=== PATIENT | male | born 1965 | race Caucasian/White ===

== ENCOUNTER 2021-07-03 09:24 | Day surgery (SDC) | payer BC ==
--- NOTE | 2021-07-03 08:43 | HP ---
DATE OF SURGERY: 07/03/2021 HISTORY OF PRESENT ILLNESS: The patient is a 56 year-old with last colonoscopy six or seven years ago with question of some polyps back then. No bloody stools. No change in bowel habits. No pain. Family history of grandfather with colon cancer. The patient is in need of follow up screening colonoscopy. PAST MEDICAL HISTORY: Heart disease. Diabetes. Hypertension. PAST SURGICAL HISTORY: Colonoscopy. Tonsillectomy/adenoidectomy. Heart stent. MEDICATIONS: Metformin, glipizide, hydrochlorothiazide, lisinopril, amlodipine, Bystolic, rosuvastatin, aspirin, Latanoprost. ALLERGIES: NKDA. FAMILY HISTORY: Negative in regards to this problem. SOCIAL HISTORY: No alcohol abuse. REVIEW OF SYSTEMS: Fourteen systems reviewed. No chest pain or palpitations. Other systems negative or noncontributory as above and per preadmission questionnaire. PHYSICAL EXAMINATION: GENERAL: No acute distress. HEENT: Sclerae nonicteric. NECK: No JVD. CHEST: Equal excursion, nonlabored breathing. CVS: Regular rate and rhythm. ABDOMEN: Soft. No peritoneal signs. EXTREMITIES: No significant edema. NEURO: Alert, oriented, moving extremities symmetrically. RECTAL: Deferred timed to endoscopy exam. PSYCH: Appropriate mood and affect. IMPRESSION: Family history of colon cancer. The patient has question of polyps in the past. He is in need of follow up screening colonoscopy. I feel he is a candidate. Risks and benefits explained in detail including but not limited to bleeding or infection, risk of bowel injury or perforation possibly requiring open procedure, risk of missed or nondiagnosis or incomplete exam possibly requiring barium enema, other studies or procedures, general risk of anesthesia or sedation, risk of bowel prep, but not limited to and consent was obtained. Will proceed with outpatient colonoscopy under MAC anesthesia.
[2021-07-03] MEDS ORDERED: Lactated Ringers 1,000 ML IV SCH (10:00)
[2021-07-03] MEDS ORDERED: DIPRIVAN 200 MG/20 ML IV ONE ×2 (12:09→12:32)
[2021-07-03] MEDS ORDERED: Versed 2 MG/2 ML Injection ONE (12:10)
[2021-07-03 13:49] VITALS: O2SAT 95
[2021-07-03 13:51] VITALS: BP 148/92; PULSE 67
--- NOTE | 2021-07-04 07:49 | OP ---
SURGERY DATE/TIME: 07/03/2021 1210 PREOPERATIVE DIAGNOSIS: Family history of colon cancer, question history of polyps in the past, need for follow up screening colonoscopy. POSTOPERATIVE DIAGNOSES: 1) Multiple small polyps. 2) Mild pancolonic diverticulosis. 3) ASA Class III. PROCEDURES: 1) Colonoscopy to cecum. 2) Hot snare polypectomy. 3) Small rectal polyp versus hyperplastic lesion. 4) Hot biopsy removal of small early polyps versus hyperplastic lesion in the cecum, descending colon, sigmoid colon, rectosigmoid colon and rectum. SURGEON: Dr. Tone Amaro. ANESTHESIA: MAC. ESTIMATED BLOOD LOSS: Minimal. INDICATIONS: As noted above. Risks and benefits explained in detail but not limited to and consent obtained. DESCRIPTION OF PROCEDURE AND FINDINGS: The patient is taken to the operating room. MAC anesthesia introduced. After official time out and no disagreement with planned procedure, digital rectal exam did not reveal any rectal masses. Video colonoscope inserted and passed up the tortuous sigmoid, descending, transverse and ascending colon. With external pressure the scope was able to be passed around to the ileocecal valve and was able to be passed around to the cecum. Appendiceal orifice and valve were photo documented. The prep overall was fair with some liquidy semisolid stool that required suction irrigating out adding additional time to the case. The scope is slowly and carefully withdrawn over the next 11 minutes. Small early polyp versus raised lesion versus early hyperplastic lesion in the cecum was removed with hot biopsy forceps with brief bursts of cautery. Good hemostasis noted. Additional small, early polyp versus hyperplastic lesion descending colon removed with hot biopsy forceps with brief bursts of cautery. Good hemostasis was noted. Three in the sigmoid colon removed with hot biopsy forceps with brief bursts of cautery. Good hemostasis noted. Additional couple in the rectosigmoid as well as two or three small, early polyps versus hyperplastic lesion in the rectosigmoid and rectum removed with hot biopsy forceps. There was one smaller polyp that was probably 3.5 mm in size removed with hot snare polypectomy in the rectum. Good hemostasis noted. He had some mild diverticulosis. No signs of any other large polyps, masses or obstructing lesions. There was no family here to discuss the findings with. I will see him back in the office in a couple of weeks for results.
== END 2021-07-03 13:53 | disposition home or self-care (01) ==
LOC: SDC 09:24
PROVIDERS: ATTEND Surgery
DX: Z12.11 Encounter for screening for malignant neoplasm of colon (principal); Z80.0 Family history of malignant neoplasm of digestive organs; E11.9 Type 2 diabetes mellitus without complications; Z79.899 Other long term (current) drug therapy; D12.8 Benign neoplasm of rectum; K57.30 Diverticulosis of large intestine without perforation or abscess without bleeding
CPT/HCPCS: 82947; 88305; J2250; J2704

== ENCOUNTER 2024-06-21 07:19 | Observation (INO) | payer BC ==
--- NOTE | 2024-06-21 07:45 | ERPHSYRPT ---
- History of Present Illness Time Seen by Provider: 06/21/24 07:31 Source: patient, family Exam Limitations: no limitations Physician History: pt is 59 yr old male with brief episode of tingling /numbness yesterday and awakened this am with recurrence left side of body and head which has persisted since. Ho headache or trauma. No blood thinner except baby ASA daily. Prior stents for CAD. Diabetes treated by Hx. No CP or SObreath today. He was told of a prior TIA when the eye Dr. mcgill a field deficit looking for glaucoma - he believes mostly negative w/u then without suggested interventions but diagnosed with a TIA ( no symptoms). Discussed risks/benefits of testing/Tx with pt and family including CT head, CTA ( if neuro indicated) Teleneuro consult, CBC, CMP, UA, EKG, Trops BNP, Lactate, ESR, Mag, IVF, and they wish to proceed so these are ordered. Results discussed with pt and family. Family is in ER as independent source to confirm Hx. No Pronator drift, No facial weakness, Minimal visual field loss without change on right per pt. fundi benign, PERRL EOM full. Reflexes normal and symmetrical, Normal gait and coordination - but subjective dysequilibrium and left sided tingling /numbness but sensation intact. Timing/Duration: today Severity: moderate Character of Deficits: altered sensation (subjectgive) Deficits: no difficulties Baseline/Normal Cognition: alert oriented x 3 Current Cognition: alert oriented x 3 Baseline Gait: walks w/o assistance Associated Symptoms: numbness/tingling in legs/feet, paresthesia Allergies/Adverse Reactions: No Known Drug Allergies Allergy (Verified 06/21/24 07:24) Home Medications: Metformin HCl [Glucophage] 2,500 mg PO DAILY 10/24/15 [History] Rosuvastatin Calcium [Crestor] 10 mg PO DAILY 10/24/15 [History] lisinopriL [Zestril] 2.5 mg PO DAILY 10/24/15 [History] Amlodipine Besylate 5 mg [Norvasc 5 mg] 10 mg PO DAILY 06/27/21 [History] Glipizide 5 mg [Glucotrol 5 MG] 10 mg PO BID 06/27/21 [History] Hydrochlorothiazide 25 mg [hydroDIURIL 25 MG] 25 mg PO DAILY 06/27/21 [History] Latanoprost/Pf [Latanoprost 0.005% Eye Drop] 1 drop OP DAILY 07/03/21 [History] Nebivolol HCl [Bystolic] 20 mg PO DAILY 07/03/21 [History] Dulaglutide [Trulicity] 0.75 mg SQ WEEKLY 06/21/24 [History] cycloSPORINE [Cyclosporine] 1 drop OP BID 06/21/24 [History] - Review of Systems Constitutional: No Fever, No Chills Eyes: No Symptoms Ears, Nose, & Throat: No Symptoms Respiratory: No Cough, No Dyspnea Cardiac: No Chest Pain, No Edema, No Syncope Abdominal/Gastrointestinal: No Abdominal Pain, No Nausea, No Vomiting, No Diarrhea Genitourinary Symptoms: No Dysuria Musculoskeletal: No Back Pain, No Neck Pain Skin: No Symptoms, No Rash Neurological: Parasthesia, No Dizziness, No Focal Weakness, No Sensory Changes Psychological: No Symptoms Endocrine: No Symptoms Hematologic/Lymphatic: No Symptoms Immunological/Allergic: No Symptoms All Other Systems: Reviewed and Negative - Past Medical History Pertinent Past Medical History: Yes Neurological History: No Pertinent History ENT History: No Pertinent History Cardiac History: Coronary Artery Disease, High Cholesterol, Hypertension Respiratory History: No Pertinent History Endocrine Medical History: Diabetes Type II Musculoskeletal History: No Pertinent History GI Medical History: No Pertinent History History: No Pertinent History Psycho-Social History: No Pertinent History Male Reproductive Disorders: No Pertinent History - Past Surgical History Past Surgical History: Yes Neuro Surgical History: No Pertinent History Cardiac: Angioplasty, Cardiac Catheterization, Cardiac Stent Respiratory: No Pertinent History Gastrointestinal: No Pertinent History Genitourinary: No Pertinent History Musculoskeletal: No Pertinent History Male Surgical History: No Pertinent History Other Surgical History: T&A Significant Family History: heart disease, diabetes, hypertension - Social History Smoking Status: Former smoker Exposure to second hand smoke: No Drug Use: none - Nursing Vital Signs Nursing Vital Signs: Initial Vital Signs Pulse Rate 88 06/21/24 07:30 Respiratory Rate 14 06/21/24 07:30 Blood Pressure 152/79 06/21/24 07:30 O2 Sat by Pulse Oximetry 97 06/21/24 07:30 Pain Scale Pain Intensity 3 - Agatha Coma Scale Best Eye Response ([place]): (4) open spontaneously Best Verbal Response ([place]): (5) oriented Best Motor Response ([place]): (6) obeys commands [place] Total: 15 - Physical Exam General Appearance: no apparent distress, alert Eye Exam: bilateral eye: normal inspection, PERRL, EOMI Ears, Nose, Throat Exam: normal ENT inspection, pharynx normal, moist mucous membranes, tonsillar exudate Neck Exam: normal inspection, non-tender, supple, No meningismus, No Brudzinski, No Kernig's, No carotid bruit, No JVD, No lymphadenopathy, No midline tenderness Respiratory: normal breath sounds, lungs clear, airway intact, No chest tenderness, No respiratory distress, No crackles/rales, No rhonchi, No wheezing Cardiovascular: regular rate/rhythm, normal heart sounds, normal peripheral pulses, No edema Gastrointestinal: soft, No tenderness, No distention Rectal Exam: deferred Back Exam: normal inspection Extremity Exam: normal inspection, No pedal edema Peripheral Pulses: carotid (R): 2+, carotid (L): 2+, femoral (R): 2+, femoral (L): 2+, dorsalis-pedis (R): 2+, dorsalis-pedis (L): 2+ Mental Status: alert, oriented x 3 source inspector Exam: normal hearing, normal speech, PERRL, tongue midline Coordination/Gait: normal finger to nose, normal gait Motor/Sensory: no motor deficit, no sensory deficit, no pronator drift, negative Babinski's sign DTR: bicep (R): 2+, bicep (L): 2+, tricep (R): 2+, tricep (L): 2+, knee (R): 2+, knee (L): 2+, ankle (R): 2+, ankle (L): 2+ Skin Exam: normal color, warm, dry, No rash SpO2 Interpretation: normal SpO2: 99 O2 Delivery: Room Air - Course Nursing assessment & vital signs reviewed: Yes EKG Interpreted by Me: Sinus Rhythm, NORMAL AXIS, NORMAL INTERVALS, NORMAL QRS, NORMAL ST-T - CT Exams Head CT Interpretation: Tele-radiologist Report, Other (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 and ischemic changes compared to prior MRI.) Ordered Tests: Active Orders 24 hr Category Date Time Status Mannequin Decorator STAT Care 06/21/24 07:47 Active EKG-ER Only STAT Care 06/21/24 07:46 Active IV Insertion STAT Care 06/21/24 07:46 Active NPO (ED) STAT Care 06/21/24 07:46 Active Pulse Oximetry (ED) STAT Care 06/21/24 07:48 Active Tele-Health Consult ROUTINE Cons 06/21/24 07:[address] ANGIOGRAPHY NECK [CT] Stat Exams 06/21/24 09:58 Taken CTA HEAD W AND/OR WO CONTRAST [CT] Stat Exams 06/21/24 09:58 Taken HEAD WITHOUT CONTRAST [CT] Stat Exams 06/21/24 07:57 Completed CBC W DIFF Stat Lab 06/21/24 07:50 Completed CMP Stat Lab 06/21/24 07:50 Completed Erythrocyte Sedimentation Rate Stat Lab 06/21/24 07:50 Completed Lactic Acid Stat Lab 06/21/24 07:50 Completed MG [MAGNESIUM] Stat Lab 06/21/24 08:16 Completed NT PRO BNPII Stat Lab 06/21/24 07:50 Completed TROPONIN Q4H Lab 06/21/24 07:50 Completed TROPONIN Q4H Lab 06/21/24 12:00 Ordered TROPONIN Q4H Lab 06/21/24 16:00 Ordered TSH [TSH, 3RD Generation] Stat Lab 06/21/24 08:16 Completed UA W/RFX UR CULTURE Stat Lab 06/21/24 08:16 Completed Medication Summary Generic Name Dose Route Start Last Admin Trade Name Freq PRN Reason Stop Dose Admin Sodium Chloride 1,000 mls @ 100 mls/hr 06/21/24 08:00 06/21/24 07:55 Sodium Chloride 0.9% 1000 Ml IV 07/21/24 07:59 100 mls/hr .Q10H CEE Administration Discontinued Medications Generic Name Dose Route Start Last Admin Trade Name Freq PRN Reason Stop Dose Admin Aspirin 325 mg 06/21/24 09:09 06/21/24 09:20 Aspirin 325 Mg Tablet.Ec PO 06/21/24 09:10 325 mg STAT ONE Administration Lab/Rad Data: Laboratory Result Diagrams 06/21/24 07:50 06/21/24 07:50 Laboratory Results 06/21/24 06/21/24 06/21/24 Range/Units 08:16 08:16 08:16 WBC (4.23-9.07) x10^3/uL RBC (4.63-6.08) x10^6/uL Hgb (13.7-17.5) g/dL Hct (40.1-51.0) % MCV (79.0-92.2) fL MCH (25.7-32.2) pg MCHC (32.3-36.5) g/dL RDW (11.6-14.4) % Plt Count (163-337) x10^3/uL MPV (9.4-12.4) fL Gran % (34.0-67.9) % Immature Gran % (Auto) (0.001-0.429) % Nucleat RBC Rel Count (0.00-0.2) % Eos # (Auto) (0.04-0.54) x10^3/uL Immature Gran # (Auto) (0.001-0.031) x10^3u/L Absolute Lymphs (auto) (1.32-3.57) x10^3/uL Absolute Monos (auto) (0.30-0.82) x10^3/uL Absolute Nucleated RBC (0.00-0.012) x10^3u/L Lymphocytes % (21.8-53.1) % Monocytes % (5.3-12.2) % Eosinophils % (0.8-7.0) % Basophils % (0.2-1.2) % Absolute Granulocytes (1.78-5.38) x10^3/uL Basophils # (0.01-0.08) x10^3/uL ESR (0-15) mm/hr Sodium (135-145) mmol/L Potassium (3.5-5.1) mmol/L Chloride (98-107) mmol/L Carbon Dioxide (22-30) mmol/L Anion Gap (5-15) MEQ/L BUN (9-20) mg/dL Creatinine (0.66-1.25) mg/dL Estimated GFR ML/MIN Glucose (74-106) mg/dL Lactic Acid (0.4-2.0) Calcium (8.4-10.2) mg/dL Magnesium 1.9 (1.6-2.3) mg/dL Total Bilirubin (0.2-1.3) mg/dL AST (17-59) U/L ALT (0-50) U/L Alkaline Phosphatase (38-126) U/L Troponin I (0.000-0.033) ng/mL NT-Pro-B Natriuret Pep (<300) pg/mL Serum Total Protein (6.3-8.2) g/dL Albumin (3.5-5.0) g/dL TSH 3rd Generation 1.334 (0.470-4.680) mIU/L Urine Color Yellow (Yellow) Urine Appearance Clear (Clear) Urine pH 7.5 (4.6-8.0) Ur Specific Hope 1.020 (1.005-1.030) Urine Protein Negative (Negative) Urine Glucose (UA) >=1000 A (Negative) mg/dL Urine Ketones Negative (Negative) Urine Blood Negative (Negative) Urine Nitrite Negative (Negative) Urine Bilirubin Negative (Negative) Urine Urobilinogen 0.2 (0.2) mg/dL Ur Leukocyte Esterase Negative (Negative) U Hyaline Cast (Auto) NONE SEEN (0-2) /LPF Urine Microscopic RBC 0-2 (0-5) /HPF Urine Microscopic WBC 0-2 (0-5) /HPF Ur Epithelial Cells None Seen (None Seen) /HPF Urine Bacteria None Seen (None Seen) /HPF Urine Culture Reflexed NO (NO) 06/21/24 06/21/24 06/21/24 Range/Units 07:50 07:50 07:50 WBC (4.23-9.07) x10^3/uL RBC (4.63-6.08) x10^6/uL Hgb (13.7-17.5) g/dL Hct (40.1-51.0) % MCV (79.0-92.2) fL MCH (25.7-32.2) pg MCHC (32.3-36.5) g/dL RDW (11.6-14.4) % Plt Count (163-337) x10^3/uL MPV (9.4-12.4) fL Gran % (34.0-67.9) % Immature Gran % (Auto) (0.001-0.429) % Nucleat RBC Rel Count (0.00-0.2) % Eos # (Auto) (0.04-0.54) x10^3/uL Immature Gran # (Auto) (0.001-0.031) x10^3u/L Absolute Lymphs (auto) (1.32-3.57) x10^3/uL Absolute Monos (auto) (0.30-0.82) x10^3/uL Absolute Nucleated RBC (0.00-0.012) x10^3u/L Lymphocytes % (21.8-53.1) % Monocytes % (5.3-12.2) % Eosinophils % (0.8-7.0) % Basophils % (0.2-1.2) % Absolute Granulocytes (1.78-5.38) x10^3/uL Basophils # (0.01-0.08) x10^3/uL ESR 4 (0-15) mm/hr Sodium 131 L (135-145) mmol/L Potassium 4.1 (3.5-5.1) mmol/L Chloride 97 L (98-107) mmol/L Carbon Dioxide 25 (22-30) mmol/L Anion Gap 13.9 (5-15) MEQ/L BUN 13 (9-20) mg/dL Creatinine 0.80 (0.66-1.25) mg/dL Estimated GFR 101.3 ML/MIN Glucose 236 H (74-106) mg/dL Lactic Acid (0.4-2.0) Calcium 9.7 (8.4-10.2) mg/dL Magnesium (1.6-2.3) mg/dL Total Bilirubin 0.80 (0.2-1.3) mg/dL AST 28 (17-59) U/L ALT 33 (0-50) U/L Alkaline Phosphatase 64 (38-126) U/L Troponin I < 0.012 (0.000-0.033) ng/mL NT-Pro-B Natriuret Pep 31.6 (<300) pg/mL Serum Total Protein 7.2 (6.3-8.2) g/dL Albumin 4.6 (3.5-5.0) g/dL TSH 3rd Generation (0.470-4.680) mIU/L Urine Color (Yellow) Urine Appearance (Clear) Urine pH (4.6-8.0) Ur Specific [place] (1.005-1.030) Urine Protein (Negative) Urine Glucose (UA) (Negative) mg/dL Urine Ketones (Negative) Urine Blood (Negative) Urine Nitrite (Negative) Urine Bilirubin (Negative) Urine Urobilinogen (0.2) mg/dL Ur Leukocyte Esterase (Negative) U Hyaline Cast (Auto) (0-2) /LPF Urine Microscopic RBC (0-5) /HPF Urine Microscopic WBC (0-5) /HPF Ur Epithelial Cells (None Seen) /HPF Urine Bacteria (None Seen) /HPF Urine Culture Reflexed (NO) 06/21/24 06/21/24 Range/Units 07:50 07:50 WBC 10.5 H (4.23-9.07) x10^3/uL RBC 5.49 (4.63-6.08) x10^6/uL Hgb 16.5 (13.7-17.5) g/dL Hct 47.2 (40.1-51.0) % MCV 86.0 (79.0-92.2) fL MCH 30.1 (25.7-32.2) pg MCHC 35.0 (32.3-36.5) g/dL RDW 13.2 (11.6-14.4) % Plt Count 296 (163-337) x10^3/uL MPV 9.5 (9.4-12.4) fL Gran % 76.9 H (34.0-67.9) % Immature Gran % (Auto) 0.4 (0.001-0.429) % Nucleat RBC Rel Count 0.0 (0.00-0.2) % Eos # (Auto) 0.08 (0.04-0.54) x10^3/uL Immature Gran # (Auto) 0.04 H (0.001-0.031) x10^3u/L Absolute Lymphs (auto) 1.66 (1.32-3.57) x10^3/uL Absolute Monos (auto) 0.59 (0.30-0.82) x10^3/uL Absolute Nucleated RBC 0.00 (0.00-0.012) x10^3u/L Lymphocytes % 15.7 L (21.8-53.1) % Monocytes % 5.6 (5.3-12.2) % Eosinophils % 0.8 (0.8-7.0) % Basophils % 0.6 (0.2-1.2) % Absolute Granulocytes 8.11 H (1.78-5.38) x10^3/uL Basophils # 0.06 (0.01-0.08) x10^3/uL ESR (0-15) mm/hr Sodium (135-145) mmol/L Potassium (3.5-5.1) mmol/L Chloride (98-107) mmol/L Carbon Dioxide (22-30) mmol/L Anion Gap (5-15) MEQ/L BUN (9-20) mg/dL Creatinine (0.66-1.25) mg/dL Estimated GFR ML/MIN Glucose (74-106) mg/dL Lactic Acid 1.8 (0.4-2.0) Calcium (8.4-10.2) mg/dL Magnesium (1.6-2.3) mg/dL Total Bilirubin (0.2-1.3) mg/dL AST (17-59) U/L ALT (0-50) U/L Alkaline Phosphatase (38-126) U/L Troponin I (0.000-0.033) ng/mL NT-Pro-B Natriuret Pep (<300) pg/mL Serum Total Protein (6.3-8.2) g/dL Albumin (3.5-5.0) g/dL TSH 3rd Generation (0.470-4.680) mIU/L Urine Color (Yellow) Urine Appearance (Clear) Urine pH (4.6-8.0) Ur Specific [place] (1.005-1.030) Urine Protein (Negative) Urine Glucose (UA) (Negative) mg/dL Urine Ketones (Negative) Urine Blood (Negative) Urine Nitrite (Negative) Urine Bilirubin (Negative) Urine Urobilinogen (0.2) mg/dL Ur Leukocyte Esterase (Negative) U Hyaline Cast (Auto) (0-2) /LPF Urine Microscopic RBC (0-5) /HPF Urine Microscopic WBC (0-5) /HPF Ur Epithelial Cells (None Seen) /HPF Urine Bacteria (None Seen) /HPF Urine Culture Reflexed (NO) - Progress Progress: improved, re-examined Progress Note: 06/21/24 09:07 Consulted with tele- Neurologist who advised admit and CTA head and neck ASA full dose and increase crestor to 40 mg. I will now consult with Hospitalist to consider admission. 06/21/24 10:13 Discussed in consultation with Hospitalist Dr. Marquez and all agree best to admit pt and he and his team will take over care at this point. He is aWAre of the pending CTA imaging studies. 06/21/24 10:[address] Other (Dr. Matt Marquez) Will see patient in: hospital (observation) Counseled pt/family regarding: lab results, diagnosis, need for follow-up, rad results Medical Desision Making - Independent Historian Additional History obtained from: Family - Discussion of managment Care discussed with:: specialist Reviewed:: Test results, Need for additional workup Agreed on:: Treatment plan, need for follow-up, decision to admit, place in obs - Diagnostic Testing Diagnostic test were ordered, analyzed, and reviewed by me: Yes Radiological Interpretation: Teleradiologist Report - Risk of complications The pt has a mod risk of morbidity or mortality based on: Need for prescription drug management The pt has a high risk of morbidity or mortality based on: Decision regarding hospitilization or escalation of hosp level of care - Departure Departure Disposition: Observation Clinical Impression: TIA symptoms with cerebrovascular diseas Condition: Good Critical Care Time: No Referrals: JOSE NEGRON [Primary Care Provider] - Follow up/PCP as directed
[2024-06-21] MEDS ORDERED: Sodium Chloride 0.9% 1000 ML 1,000 ML ONE (07:52)
[2024-06-21 07:53] LABS: Absolute Neutrophil Ct (ANC) 8.11 x10^3/uL (1.78-5.38); BASOPHIL % 0.6 % (0.2-1.2); Basophil (Absolute #) 0.06 x10^3/uL (0.01-0.08); Eosinophil % 0.8 % (0.8-7.0); Eosinophil (Absolute #) 0.08 x10^3/uL (0.04-0.54); Hematocrit 47.2 % (40.1-51.0); Hemoglobin 16.5 g/dL (13.7-17.5); IMMATURE GRAN # 0.04 x10^3u/L (0.001-0.031); IMMATURE GRAN % 0.4 % (0.001-0.429); Lymphocyte (Absolute #) 1.66 x10^3/uL (1.32-3.57); Lymphocytes % 15.7 % (21.8-53.1); Mean Corpuscular Hemoglobin 30.1 pg (25.7-32.2); Mean Platelet Volume 9.5 fL (9.4-12.4); Monocyte (Absolute #) 0.59 x10^3/uL (0.30-0.82); Monocytes % 5.6 % (5.3-12.2); Neutrophil % 76.9 % (34.0-67.9); Platelet Count 296 x10^3/uL (163-337); Red Blood Count 5.49 x10^6/uL (4.63-6.08); Red Cell Distribution Width 13.2 % (11.6-14.4); White Blood Count 10.5 x10^3/uL (4.23-9.07)
[2024-06-21] MEDS: Sodium Chloride 0.9% 1000 ML 1,000 ML IV SCH ×2 (07:55→16:35)
[2024-06-21 08:16] LABS: ALBUMIN 4.6 g/dL (3.5-5.0); ANION GAP 13.9 MEQ/L (5-15); BILIRUBIN,TOTAL 0.8 mg/dL (0.2-1.3); Calcium 9.7 mg/dL (8.4-10.2); Creatinine 1 0.8 mg/dL (0.66-1.25); EST GLOMERULAR FILTRATION RATE 101.3 ML/MIN; NT PRO BNPII 31.6 pg/mL (<300); Potassium 4.1 mmol/L (3.5-5.1); Total Protein 7.2 g/dL (6.3-8.2)
[2024-06-21 08:29] LABS: Appearance Clear (Clear); Bacteria None Seen /HPF (None Seen); Bilirubin Negative (Negative); Blood Negative (Negative); Epithelial Cells None Seen /HPF (None Seen); Glucose, Urine >=1000 mg/dL (Negative); Hyaline Casts NONE SEEN /LPF (0-2); Ketones Negative (Negative); Leukocyte Esterase Negative (Negative); Nitrite Negative (Negative); Ph 7.5 (4.6-8.0); Protein,Urine Dip Negative (Negative); RBC 0-2 /HPF (0-5); Urobilinogen 0.2 mg/dL (0.2); WBC 0-2 /HPF (0-5)
[2024-06-21 08:34] LABS: ADD URINE CULTURE? NO (NO)
--- NOTE | 2024-06-21 08:39 | PCM.CONS ---
History of Present Illness - Neuro Consultation ED Arrival Date & Time: 06/21/24 07:19 Providers: Attending Provider: ED Provider: DORCAS ESTEBAN Consulting Provider: ABBY JOINER MD cc:: The requesting physician will be sent a copy of the consult. - History of Present Illness HPI: Teleneurology Attestation & Consent: As the provider for this telehealth consult requested by the patients primary attending physician, I attest that I introduced myself to the patient, provided my credentials, disclosed my location, and determined that, based on a review of the patients chart and disc ussion with the patients primary team, telemedicine via a real-time, two-way, interactive audio and video platform is an appropriate and effective means of providing this service. The patient and I mutually agree that this visit is appropriate for telemedicine. The patient has consented to this telemedicine visit. Last known normal: 1500h IRON CASTER 06/20/24 Time of stroke alert: 0721h IRON CASTER 06/21/24 Time stroke alert page returned: 07h IRON CASTER 06/21/24 Was the patient seen on camera?: yes The patient is a 59M with h/o CAD, TIA,DM presents with left hand numbness that started yesterday. c/o LUE ,LLE and RLE numbness, heaviness that happened yesterday around 1500h IRON CASTER but went away and recurred this morning and so he came to the ER today. He says he is feeling a little better now but can still tell something is not quite right. He says his head feels warm when he touches it and feels pressure in his head but denies headache. He denies slurred speech, syncope, falls, etoh abuse, illicit drug use. Former smoker, quit about 15 yrs ago. He takes asa 81mg and rosuvastatin 10mg daily Review of Systems - Review of Systems Review of Systems (Narrative): Pertinent positive and negative findings as per HPI. All other systems negative. Constitutional: Denies fevers, chills, weight loss ENT: Denies tinnitus Ophthalmology: Denies diplopia, blurred vision, vision loss Respiratory: Denies SOB, cough Cardiovascular: Denies chest pains, palpitations GI: Denies nausea, vomiting : Denies hematuria Hematology: Denies excessive bleeding Musculoskeletal: Denies back pain, neck pain, joint pain Neurology: Denies headache, altered mentation Mental Health: Denies anxiety Dermatology: Denies rash - Past Medical History Past Medical History: Yes Neurological History: No Pertinent History ENT History: No Pertinent History Cardiac History: Coronary Artery Disease, High Cholesterol, Hypertension Respiratory History: No Pertinent History Endocrine Medical History: Diabetes Type II Musculoskelatal History: No Pertinent History GI Medical History: No Pertinent History History: No Pertinent History Pyscho-Social History: No Pertinent History Male Reproductive Disorders: No Pertinent History - Past Surgical History Past Surgical History: Yes Neuro Surgical History: No Pertinent History Cardiac History: Angioplasty, Cardiac Catheterization, Cardiac Stent Respiratory Surgery: No Pertinent History GI Surgical History: No Pertinent History Genitourinary Surgical Hx: No Pertinent History Musculskeletal Surgical Hx: No Pertinent History Male Surgical History: No Pertinent History Other Surgical History: T&A Significant Family History: heart disease, diabetes, hypertension - Social History Smoking Status: Former smoker Exposure to second hand smoke: No Alcohol: None Drug Use: none - Social Determinants of Health Will the patient participate in the screening: Yes Do you worry about a steady place to live?: No Do you have any problems with any of the following?: No known problems In the past 12 months,have you had to go without utilities?: No Have you or anyone in your house had to go without enough: No Transportation Issues: No Has anyone in your support network made you feel unsafe?: No Physical Exam - Vital Signs Vital Signs: Vital Signs - 24 hr 06/21/24 06/21/24 06/21/24 07:30 07:32 08:07 Temperature 98.2 F Pulse Rate 88 89 Respiratory 14 16 Rate Blood Pressure 152/79 Blood Pressure 169/79 [Right Arm] O2 Sat by Pulse 97 99 99 Oximetry 06/21/24 08:16 Temperature Pulse Rate Respiratory Rate Blood Pressure Blood Pressure [Right Arm] O2 Sat by Pulse 98 Oximetry - Physical Exam Tele-Neuro Physical Exam (Narrative): Gen: Well developed, well nourished. No acute distress. MS: Awake and oriented. Alert. Fund of knowledge, memory, and language at baseline. CV: Regular rate. No edema. ldr rn: PA, EOMI. +blink. Unable to visualize fundi. Sensation intact. Face is symmetric. Hearing intact. Trapezii strong. Tongue midline. Motor: Antigravity in all 4 extremities. Normal tone and bulk. Sens: Intact to light touch in all 4 extremities. MSR: Unable to assess through telemedicine, no clonus noted. Mvmt: No tremors noted. WAYLON/FTN intact. Gait: Deferred. NIHSS Mental status (0-3): 0 Month/age (0-2): 0 Commands (0-2): 0 Best Gaze (0-2): 0 Visual [place] (0-3):0 Facial weakness (0-3): 0 LUE (0-4): 0 RUE (0-4): 0 LLE (0-4): 0 RLE (0-4): 0 Ataxia (0-2): 0 Sensation (0-2): 0 Aphasia (0-3): 0 Dysarthria (0-2): 0 Extinction (0-2): 0 NIHSS Total: 0 - NIHSS Stroke Scale Date Completed: 06/21/24 Time Stroke Scale Completed: 07:36 Results - Labs Lab/Micro Results: Lab Results-Last 24 Hours 06/21/24 06/21/24 06/21/24 Range/Units 07:50 07:50 07:50 WBC 10.5 H (4.23-9.07) x10^3/uL RBC 5.49 (4.63-6.08) x10^6/uL Hgb 16.5 (13.7-17.5) g/dL Hct 47.2 (40.1-51.0) % MCV 86.0 (79.0-92.2) fL MCH 30.1 (25.7-32.2) pg MCHC 35.0 (32.3-36.5) g/dL RDW 13.2 (11.6-14.4) % Plt Count 296 (163-337) x10^3/uL MPV 9.5 (9.4-12.4) fL Gran % 76.9 H (34.0-67.9) % Immature Gran % (Auto) 0.4 (0.001-0.429) % Nucleat RBC Rel Count 0.0 (0.00-0.2) % Eos # (Auto) 0.08 (0.04-0.54) x10^3/uL Immature Gran # (Auto) 0.04 H (0.001-0.031) x10^3u/L Absolute Lymphs (auto) 1.66 (1.32-3.57) x10^3/uL Absolute Monos (auto) 0.59 (0.30-0.82) x10^3/uL Absolute Nucleated RBC 0.00 (0.00-0.012) x10^3u/L Lymphocytes % 15.7 L (21.8-53.1) % Monocytes % 5.6 (5.3-12.2) % Eosinophils % 0.8 (0.8-7.0) % Basophils % 0.6 (0.2-1.2) % Absolute Granulocytes 8.11 H (1.78-5.38) x10^3/uL Basophils # 0.06 (0.01-0.08) x10^3/uL Sodium 131 L (135-145) mmol/L Potassium 4.1 (3.5-5.1) mmol/L Chloride 97 L (98-107) mmol/L Carbon Dioxide 25 (22-30) mmol/L Anion Gap 13.9 (5-15) MEQ/L BUN 13 (9-20) mg/dL Creatinine 0.80 (0.66-1.25) mg/dL Estimated GFR 101.3 ML/MIN Glucose 236 H (74-106) mg/dL Calcium 9.7 (8.4-10.2) mg/dL Total Bilirubin 0.80 (0.2-1.3) mg/dL AST 28 (17-59) U/L ALT 33 (0-50) U/L Alkaline Phosphatase 64 (38-126) U/L Troponin I < 0.012 (0.000-0.033) ng/mL NT-Pro-B Natriuret Pep 31.6 (<300) pg/mL Serum Total Protein 7.2 (6.3-8.2) g/dL Albumin 4.6 (3.5-5.0) g/dL - Radiology Orders Radiology Orders: Radiology Procedures Category Date Time Status HEAD WITHOUT CONTRAST [CT] Stat Exams 06/21/24 07:57 Taken Impressions & Recommendations - ED Arrival Time ED Arrival Date & Time: ED Arrival Date and Time 06/21/24 07:19 Last known well time: - NIHSS IV Thrombolysis Standard of Care: IV thrombolysis as a standard of care in acute stroke discussed with DORCAS ESTEBAN. Risk, benefits, and options of IV thrombolytic therapy for acute ischemic stroke were discussed with the patient/family THOMAS LARSON. We discussed that use of IV tenecteplase is in line with national stroke guidelines. We discussed that risks of IV thrombolytic use include intracranial hemorrhage, other fatal bleeding risks, and angioedema. Alternatives of treatment, including not proceeding with thrombolytic therapy were discussed. - Recommendations Recommendations: Stroke acute management:out of window for TNK - Admit to stroke unit - Frequent neuro-checks (q4h) - Permissive HTN for 24h:systolic BP goal up to 220, diastolic up to 110 mmHg for 24h - Baseline EKG and CXR - Basic labs: CBC, CMP, coagulation panel and troponin - Intravenous hydration with normal saline at 75cc per hour - NPO until after SEISMOMETER OPERATOR eval -Replace electrolytes prn-Keep K >4.0, Mg > 2.0. - Head of bed > 30 degrees for aspiration prevention and aspiration precautions Stroke workup: -CTH:no acute intracranial process. left occipital and left BG hypodensity favored to be remote infarct -stat CTA head and neck:if LVO get stat neuro interventional consult -MRI: -Trans-thoracic echocardiogram with buble study -Continuous cardiac telemetry to monitor for arrhythmia -Stroke labwork: HgbA1C, lipid panel, urine drug screen Secondary prevention of stroke: -Aspirin 325mg daily -rosuvastatin 40 mg daily (long-term goal LDL < 70) -Tight glucose control (long-term goal HgbA1c < 7%) -Stroke education and counseling -If smoker, smoking counseling and offer assistance with smoking cessation (possible nicotine patch) Stroke rehabilitation: -Physical therapy, occupational therapy, speech therapy consults -Consult social work and case management for help with discharge Other medical issues: HTN: DM: Prophylaxis: SCDs (DVT), heparin 5000u q8h if no contraindications, famotidine, docusate (GI) Medical Decision Making Acute issues prompting hospitalization enumerated, reviewed and managed individually as above. Complexity of Chronic Problems enumerated, reviewed and managed individually as above. Independently interpreted labs and radiology. Risk of morbidity reviewed. Additional testing/treatment as discussed individually above. Discussed findings with patient/family, charge nurse/bedside nurse. Included in the discussion were the latest clinical, laboratory and imaging findings. We also discussed updated working diagnosis, overall impression and updated plan of care. In this discussion, current plan for treatment, medication indication discussed. Patient/family member agreeable to discussed plan of care. I answered all the questions to their satisfaction. Acute care plan was discussed with Dr. DORCAS ESTEBAN Thank you for allowing us to participate in this patients care. Please call [facility] with questions, concerns, or change in patients neurological status. This consult was performed via secure telemedicine audio/visual platform with RN assisting at bedside. Patient identity verified and consent obtained. Assessment & Plan - Encounter Encounter: "The entirety of this encounter was performed via Telemedicine using audio and visual "
--- NOTE | 2024-06-21 08:41 | XRAY ---
CLINICAL HISTORY: Numbness left side COMPARISON: 05/28/2023 MRI TECHNIQUE: Axial noncontrast CT scan of the brain was performed from the skull base to the high parietal region. One of the following dose reduction techniques was utilized for this exam.Automated exposure control, adjustment of the mA and/or kV according to patient size, and use of iterative reconstruction. DLP : 935.49 CTDI : 53.92 FINDINGS: No intracerebral or extra axial hematoma. Confluent hypodensity is seen surrounding the left occipital horn, suggestive of microvascular ischemic changes (redemonstrated). Small left basal ganglionic hypodensity about 7 mm in size is noted. (redemonstrated). The ventricular system, cortical sulci and basal cisterns are prominent consistent with senile changes. The visualized brain parenchyma shows normal appearance. Rodriguez-white matter differentiation is maintained. No midline shifts or deformity. Normal CT appearance of the posterior fossa structures namely the cerebellar hemispheres, brainstem and cerebellar peduncles. The IACs are unremarkable. The cerebello-pontine angles are clear. The pituitary gland, the pineal gland, the optic chiasm is unremarkable. The osseous structures in the skull base are unremarkable. No definite calvarium fractures. IMPRESSION: 1. No intracerebral or extra axial hematoma. 2. No definite acute major cortical territorial ischemic insult is noted. MRI with diffusion imaging is advised to detect any evolving ischemic insult. 3. Redemonstration of confluent hypodensity seen surrounding the left occipital horn and small left basal ganglionic hypodensity, suggestive of microvascular ischemic changes and lacunar infarct. Electronically Signed by: Marcelle Sanders MD. (06/21/2024 08:36:16 EDT)
[2024-06-21] MEDS: Ecotrin 325 MG PO ONE (09:20)
--- NOTE | 2024-06-21 10:29 | XRAY ---
CLINICAL HISTORY: teleneuro request after cva symptom COMPARISON: 06/21/2024 TECHNIQUE: CT angiography of the head was performed following the intravenous administration of iodinated contrast material. Contiguous axial images were obtained from the base of the skull to the vertex. Coronal and sagittal reformatted images were also reviewed. One of these 3D techniques was utilized: Maximum Intensity Pixel (MIP), 3D Reconstructed Images, Volume Rendered Images, Surface Shaded Rendering. One of the following dose reduction techniques was utilized for this exam. Automated exposure control, adjustment of the mA and/or kV according to patient size, and use of iterative reconstruction. FINDINGS: Intracranial Arteries: The intracranial arteries, including the anterior cerebral arteries, middle cerebral arteries, posterior cerebral arteries, basilar artery, and vertebral arteries, are all patent without evidence of significant stenosis, aneurysm, or dissection. There is no evidence of vascular malformations. [place]: The [place] is intact with no anatomical variations or abnormalities noted. All segments are well-visualized and normal in appearance. Venous System: The visualized portions of the venous system, including the dural venous sinuses, are patent with no evidence of thrombosis. Brain Parenchyma: No definite acute major cortical territorial ischemic insult is noted. Redemonstration of confluent hypodensity seen surrounding the left occipital horn and small left basal ganglionic hypodensity, suggestive of microvascular ischemic changes and lacunar infarct. Bones: The bony structures of the skull are intact without evidence of fracture or destructive lesions. Soft Tissues: The visualized soft tissues of the head are unremarkable. Additional Findings: Mild atherosclerotic changes seen in the visualized arteries. IMPRESSION: Normal CT angiography of the head. No evidence of significant vascular abnormalities, acute infarct, or hemorrhage. Mild atherosclerotic changes seen in the visualized arteries. RECOMMENDATIONS: No further imaging is required at this time. Clinical correlation is recommended. Electronically Signed by: Marcelle Sanders MD. (06/21/2024 10:25:39 EDT)
--- NOTE | 2024-06-21 10:47 | XRAY ---
CLINICAL HISTORY: head and neck CTA for CVA symptoms COMPARISON: None. TECHNIQUE: CT angiography study of the neck with IV contrast was performed and multiple axial sections were obtained with coronal and sagittal reconstructions. One of these 3D techniques was utilized: Maximum Intensity Pixel (MIP), 3D Reconstructed Images, Volume Rendered Images, Surface Shaded Rendering. One of the following dose reduction techniques were utilized for this exam: Automated exposure control, adjustment of the mA and/or kV according to patient size, and use of iterative reconstruction. FINDINGS: Carotid Arteries: Common carotid arteries, internal carotid arteries, and external carotid arteries bilaterally are well-opacified. No evidence of significant stenosis, occlusion, or aneurysm. No significant atherosclerotic changes. Vertebral Arteries: The right vertebral artery is occluded from its orign up to the mid cervical vertebra where minimal contrast filling is noted, then it becomes occluded again till the distal V3 segment. The V4 segment is unremarkable. The left vertebral artery is dominant and patent, Aortic arch: Mild aortic arch intimal atherosclerotic calcifications. Subclavian arteries bilaterally are well-opacified. No evidence of significant stenosis, occlusion, or aneurysm. Additional findings: Cervical spine degenerative changes with ostoephytes. IMPRESSION: Right vertebral artery occlusion. Otherwise, Normal CT angiography of the neck. [facility] was called at [phone] at 9:39 AM [facility] [employer], 06/21/2024 and Nurse Shyla was informed regarding the presence of Significant medical Findings in the report. Electronically Signed by: Marcelle Sanders MD. (06/21/2024 10:43:28 EDT)
--- NOTE | 2024-06-21 12:02 | PCM.HP ---
<CLARA TOMLIN - Last Filed: 06/21/24 11:35> History of Present Illness - Chief Complaint Chief Complaint: left sided weakness Date: 06/21/24 History of Present Illness: is a 59 year old male with PMHX of CAD, hyperlipidemia, TIA, HTN, prior stents for CAD, and Type II DM ( oral controlled). Pt came in the ER today with brief episode of tingling /numbness yesterday and awakened this AM with recurrence left side of body and head which has persisted since. Ho headache or trauma. No blood thinner except baby ASA daily. Tele neuro consult in ER With recs in chart. Echo and MRI to be completed tomorrow. CT negative for acute concerns. CT angiography neck shows right vertebral artery occlusion. Discussed results with neurology and they feel no need to tx at this time. Pt states he currently has no sxs. Neuro exam WNL. He denies CP, SOB, abd. pain, N/V/D. - Review of Systems Constitutional: No Fever, No Chills Eyes: No Symptoms Ears, Nose, & Throat: No Symptoms Respiratory: No Cough, No Short Of Breath Cardiac: No Chest Pain, No Edema, No Syncope Abdominal/Gastrointestinal: No Abdominal Pain, No Nausea, No Vomiting, No Diarrhea Genitourinary Symptoms: No Dysuria Musculoskeletal: No Back Pain, No Neck Pain Skin: No Rash Neurological: No Dizziness, No Focal Weakness, No Sensory Changes Psychological: No Symptoms Endocrine: No Symptoms Hematologic/Lymphatic: No Symptoms Immunological/Allergic: No Symptoms Medications & Allergies Home Medications: Home Medication List Rosuvastatin Calcium [Crestor] 10 mg PO QHS 10/24/15 [History Confirmed 06/21/24] lisinopriL [Zestril] 2.5 mg PO DAILY 10/24/15 [History Confirmed 06/21/24] Amlodipine Besylate 5 mg [Norvasc 5 mg] 10 mg PO DAILY 06/27/21 [History Confirmed 06/21/24] Glipizide 5 mg [Glucotrol 5 MG] 10 mg PO BID 06/27/21 [History Confirmed 06/21/24] Hydrochlorothiazide 25 mg [hydroDIURIL 25 MG] 25 mg PO DAILY 06/27/21 [History Confirmed 06/21/24] Aspirin 81 gm Chew [Baby Aspirin 81 mg Chew] 81 mg PO DAILY #0 07/03/21 [Rx Confirmed 06/21/24] Latanoprost/Pf [Latanoprost 0.005% Eye Drop] 1 drop OP QHS 07/03/21 [History Confirmed 06/21/24] Nebivolol HCl [Bystolic] 20 mg PO DAILY 07/03/21 [History Confirmed 06/21/24] Dapagliflozin Propanediol [Farxiga] 10 mg PO DAILY 06/21/24 [History Confirmed 06/21/24] Dulaglutide [Trulicity] 0.75 mg SQ WEEKLY 06/21/24 [History Confirmed 06/21/24] Metformin HCl 500 mg [Glucophage 500 MG] 1,000 mg PO QAM 06/21/24 [History Confirmed 06/21/24] Metformin HCl 500 mg [Glucophage 500 MG] 1,500 mg PO EVENING MEAL 06/21/24 [History Confirmed 06/21/24] cycloSPORINE [Cyclosporine] 1 drop OP BID 06/21/24 [History Confirmed 06/21/24] Allergies/Adverse Reactions: Allergies Allergy/AdvReac Type Severity Reaction Status Date / Time No Known Drug Allergies Allergy Verified 06/21/24 07:24 - Past Medical History Past Medical History: Yes Neurological History: No Pertinent History, TIA ENT History: Glaucoma Cardiac History: Congestive Heart Failure, Coronary Artery Disease, High Cholesterol, Hypertension Respiratory History: CHF Endocrine Medical History: Diabetes Type II Musculoskelatal History: No Pertinent History GI Medical History: No Pertinent History History: No Pertinent History Pyscho-Social History: No Pertinent History Male Reproductive Disorders: No Pertinent History - Past Surgical History Past Surgical History: Yes Neuro Surgical History: No Pertinent History Cardiac History: Angioplasty, Cardiac Catheterization, Cardiac Stent Respiratory Surgery: No Pertinent History GI Surgical History: No Pertinent History Genitourinary Surgical Hx: No Pertinent History Musculskeletal Surgical Hx: No Pertinent History Male Surgical History: No Pertinent History Other Surgical History: 3 cardiac stents Significant Family History: heart disease, diabetes, hypertension - Social History Smoking Status: Former smoker Exposure to second hand smoke: No Alcohol: None, Rarely Drug Use: none - Social Determinants of Health Will the patient participate in the screening: Yes Do you worry about a steady place to live?: No Do you have any problems with any of the following?: No known problems In the past 12 months,have you had to go without utilities?: No Have you or anyone in your house had to go without enough: No Transportation Issues: No Has anyone in your support network made you feel unsafe?: No - Physical Exam Vital Signs: Vital Signs - 24 hr Temp Pulse Resp BP BP Pulse Ox 06/21/24 10:16 99 06/21/24 10:00 79 14 148/77 96 06/21/24 09:30 86 16 131/68 95 06/21/24 09:00 81 17 148/72 98 06/21/24 08:30 75 17 157/87 96 06/21/24 08:26 87 21 138/81 98 06/21/24 08:16 98 06/21/24 07:32 98.2 F 89 16 169/79 99 06/21/24 07:30 88 14 152/79 97 General Appearance: no apparent distress, alert Neurologic Exam: alert, oriented x 3, cooperative, normal mood/affect, nml cerebellar function, nml station & gait, sensation nml, No motor deficits Eye Exam: PERRL/EOMI, eyes nml inspection Ears, Nose, Throat Exam: normal ENT inspection, TMs normal, pharynx normal, moist mucous membranes Neck Exam: normal inspection, non-tender, supple, full range of motion Respiratory Exam: normal breath sounds, lungs clear, crackles/rales (BLLL), No respiratory distress Cardiovascular Exam: regular rate/rhythm, normal heart sounds, normal peripheral pulses Gastrointestinal/Abdomen Exam: soft, normal bowel sounds, No tenderness, No mass Back Exam: normal inspection, normal range of motion, No CVA tenderness, No vertebral tenderness Extremity Exam: normal inspection, normal range of motion, pelvis stable Skin Exam: normal color, warm, dry, No rash Lymphatic Exam: No adenopathy Results - Labs Lab/Micro Results: Lab Results-Last 24 Hours 06/21/24 06/21/24 06/21/24 Range/Units 07:50 07:50 07:50 WBC 10.5 H (4.23-9.07) x10^3/uL RBC 5.49 (4.63-6.08) x10^6/uL Hgb 16.5 (13.7-17.5) g/dL Hct 47.2 (40.1-51.0) % MCV 86.0 (79.0-92.2) fL MCH 30.1 (25.7-32.2) pg MCHC 35.0 (32.3-36.5) g/dL RDW 13.2 (11.6-14.4) % Plt Count 296 (163-337) x10^3/uL MPV 9.5 (9.4-12.4) fL Gran % 76.9 H (34.0-67.9) % Immature Gran % (Auto) 0.4 (0.001-0.429) % Nucleat RBC Rel Count 0.0 (0.00-0.2) % Eos # (Auto) 0.08 (0.04-0.54) x10^3/uL Immature Gran # (Auto) 0.04 H (0.001-0.031) x10^3u/L Absolute Lymphs (auto) 1.66 (1.32-3.57) x10^3/uL Absolute Monos (auto) 0.59 (0.30-0.82) x10^3/uL Absolute Nucleated RBC 0.00 (0.00-0.012) x10^3u/L Lymphocytes % 15.7 L (21.8-53.1) % Monocytes % 5.6 (5.3-12.2) % Eosinophils % 0.8 (0.8-7.0) % Basophils % 0.6 (0.2-1.2) % Absolute Granulocytes 8.11 H (1.78-5.38) x10^3/uL Basophils # 0.06 (0.01-0.08) x10^3/uL ESR (0-15) mm/hr Sodium 131 L (135-145) mmol/L Potassium 4.1 (3.5-5.1) mmol/L Chloride 97 L (98-107) mmol/L Carbon Dioxide 25 (22-30) mmol/L Anion Gap 13.9 (5-15) MEQ/L BUN 13 (9-20) mg/dL Creatinine 0.80 (0.66-1.25) mg/dL Estimated GFR 101.3 ML/MIN Glucose 236 H (74-106) mg/dL Lactic Acid 1.8 (0.4-2.0) Calcium 9.7 (8.4-10.2) mg/dL Magnesium (1.6-2.3) mg/dL Total Bilirubin 0.80 (0.2-1.3) mg/dL AST 28 (17-59) U/L ALT 33 (0-50) U/L Alkaline Phosphatase 64 (38-126) U/L Troponin I (0.000-0.033) ng/mL NT-Pro-B Natriuret Pep 31.6 (<300) pg/mL Serum Total Protein 7.2 (6.3-8.2) g/dL Albumin 4.6 (3.5-5.0) g/dL TSH 3rd Generation (0.470-4.680) mIU/L Urine Color (Yellow) Urine Appearance (Clear) Urine pH (4.6-8.0) Ur Specific [place] (1.005-1.030) Urine Protein (Negative) Urine Glucose (UA) (Negative) mg/dL Urine Ketones (Negative) Urine Blood (Negative) Urine Nitrite (Negative) Urine Bilirubin (Negative) Urine Urobilinogen (0.2) mg/dL Ur Leukocyte Esterase (Negative) U Hyaline Cast (Auto) (0-2) /LPF Urine Microscopic RBC (0-5) /HPF Urine Microscopic WBC (0-5) /HPF Ur Epithelial Cells (None Seen) /HPF Urine Bacteria (None Seen) /HPF Urine Culture Reflexed (NO) 06/21/24 06/21/24 06/21/24 Range/Units 07:50 07:50 08:16 WBC (4.23-9.07) x10^3/uL RBC (4.63-6.08) x10^6/uL Hgb (13.7-17.5) g/dL Hct (40.1-51.0) % MCV (79.0-92.2) fL MCH (25.7-32.2) pg MCHC (32.3-36.5) g/dL RDW (11.6-14.4) % Plt Count (163-337) x10^3/uL MPV (9.4-12.4) fL Gran % (34.0-67.9) % Immature Gran % (Auto) (0.001-0.429) % Nucleat RBC Rel Count (0.00-0.2) % Eos # (Auto) (0.04-0.54) x10^3/uL Immature Gran # (Auto) (0.001-0.031) x10^3u/L Absolute Lymphs (auto) (1.32-3.57) x10^3/uL Absolute Monos (auto) (0.30-0.82) x10^3/uL Absolute Nucleated RBC (0.00-0.012) x10^3u/L Lymphocytes % (21.8-53.1) % Monocytes % (5.3-12.2) % Eosinophils % (0.8-7.0) % Basophils % (0.2-1.2) % Absolute Granulocytes (1.78-5.38) x10^3/uL Basophils # (0.01-0.08) x10^3/uL ESR 4 (0-15) mm/hr Sodium (135-145) mmol/L Potassium (3.5-5.1) mmol/L Chloride (98-107) mmol/L Carbon Dioxide (22-30) mmol/L Anion Gap (5-15) MEQ/L BUN (9-20) mg/dL Creatinine (0.66-1.25) mg/dL Estimated GFR ML/MIN Glucose (74-106) mg/dL Lactic Acid (0.4-2.0) Calcium (8.4-10.2) mg/dL Magnesium (1.6-2.3) mg/dL Total Bilirubin (0.2-1.3) mg/dL AST (17-59) U/L ALT (0-50) U/L Alkaline Phosphatase (38-126) U/L Troponin I < 0.012 (0.000-0.033) ng/mL NT-Pro-B Natriuret Pep (<300) pg/mL Serum Total Protein (6.3-8.2) g/dL Albumin (3.5-5.0) g/dL TSH 3rd Generation (0.470-4.680) mIU/L Urine Color Yellow (Yellow) Urine Appearance Clear (Clear) Urine pH 7.5 (4.6-8.0) Ur Specific [place] 1.020 (1.005-1.030) Urine Protein Negative (Negative) Urine Glucose (UA) >=1000 A (Negative) mg/dL Urine Ketones Negative (Negative) Urine Blood Negative (Negative) Urine Nitrite Negative (Negative) Urine Bilirubin Negative (Negative) Urine Urobilinogen 0.2 (0.2) mg/dL Ur Leukocyte Esterase Negative (Negative) U Hyaline Cast (Auto) NONE SEEN (0-2) /LPF Urine Microscopic RBC 0-2 (0-5) /HPF Urine Microscopic WBC 0-2 (0-5) /HPF Ur Epithelial Cells None Seen (None Seen) /HPF Urine Bacteria None Seen (None Seen) /HPF Urine Culture Reflexed NO (NO) 06/21/24 06/21/24 Range/Units 08:16 08:16 WBC (4.23-9.07) x10^3/uL RBC (4.63-6.08) x10^6/uL Hgb (13.7-17.5) g/dL Hct (40.1-51.0) % MCV (79.0-92.2) fL MCH (25.7-32.2) pg MCHC (32.3-36.5) g/dL RDW (11.6-14.4) % Plt Count (163-337) x10^3/uL MPV (9.4-12.4) fL Gran % (34.0-67.9) % Immature Gran % (Auto) (0.001-0.429) % Nucleat RBC Rel Count (0.00-0.2) % Eos # (Auto) (0.04-0.54) x10^3/uL Immature Gran # (Auto) (0.001-0.031) x10^3u/L Absolute Lymphs (auto) (1.32-3.57) x10^3/uL Absolute Monos (auto) (0.30-0.82) x10^3/uL Absolute Nucleated RBC (0.00-0.012) x10^3u/L Lymphocytes % (21.8-53.1) % Monocytes % (5.3-12.2) % Eosinophils % (0.8-7.0) % Basophils % (0.2-1.2) % Absolute Granulocytes (1.78-5.38) x10^3/uL Basophils # (0.01-0.08) x10^3/uL ESR (0-15) mm/hr Sodium (135-145) mmol/L Potassium (3.5-5.1) mmol/L Chloride (98-107) mmol/L Carbon Dioxide (22-30) mmol/L Anion Gap (5-15) MEQ/L BUN (9-20) mg/dL Creatinine (0.66-1.25) mg/dL Estimated GFR ML/MIN Glucose (74-106) mg/dL Lactic Acid (0.4-2.0) Calcium (8.4-10.2) mg/dL Magnesium 1.9 (1.6-2.3) mg/dL Total Bilirubin (0.2-1.3) mg/dL AST (17-59) U/L ALT (0-50) U/L Alkaline Phosphatase (38-126) U/L Troponin I (0.000-0.033) ng/mL NT-Pro-B Natriuret Pep (<300) pg/mL Serum Total Protein (6.3-8.2) g/dL Albumin (3.5-5.0) g/dL TSH 3rd Generation 1.334 (0.470-4.680) mIU/L Urine Color (Yellow) Urine Appearance (Clear) Urine pH (4.6-8.0) Ur Specific [place] (1.005-1.030) Urine Protein (Negative) Urine Glucose (UA) (Negative) mg/dL Urine Ketones (Negative) Urine Blood (Negative) Urine Nitrite (Negative) Urine Bilirubin (Negative) Urine Urobilinogen (0.2) mg/dL Ur Leukocyte Esterase (Negative) U Hyaline Cast (Auto) (0-2) /LPF Urine Microscopic RBC (0-5) /HPF Urine Microscopic WBC (0-5) /HPF Ur Epithelial Cells (None Seen) /HPF Urine Bacteria (None Seen) /HPF Urine Culture Reflexed (NO) - Radiology Impressions Radiology Exams & Impressions: Radiology Procedures Category Date Time Status CT ANGIOGRAPHY NECK [CT] Stat Exams 06/21/24 09:58 Completed CTA HEAD W AND/OR WO CONTRAST [CT] Stat Exams 06/21/24 09:58 Completed HEAD WITHOUT CONTRAST [CT] Stat Exams 06/21/24 07:57 Completed - Other Procedures and Tests Respiratory Therapy 06/21/24 11:00 Respiratory Therapy Consult ONCE Assessment/Plan (1) Vertebral artery occlusion Current Visit: Yes Status: Acute Assessment & Plan: - CT angiography 06/21 IMPRESSION: Right vertebral artery occlusion. Otherwise, Normal CT angiography of the neck. - Per neurology f/u with MRI tomorrow - no need to transfer per neurology Code(s): I65.09 - OCCLUSION AND STENOSIS OF UNSPECIFIED VERTEBRAL ARTERY (2) Acute left-sided weakness Current Visit: Yes Status: Acute Assessment & Plan: - resolved since admission - MRI Brain and echo tomorrow - CT head 06/21 IMPRESSION: Normal CT angiography of the head. No evidence of significant vascular abnormalities, acute infarct, or hemorrhage. Mild atherosclerotic changes seen in the visualized arteries. - Tele- neurology consult with recs: - Admit to stroke unit - Frequent neuro-checks (q4h) - Permissive HTN for 24h:systolic BP goal up to 220, diastolic up to 110 mmHg for 24h - Baseline EKG and CXR - Basic labs: CBC, CMP, coagulation panel and troponin - Intravenous hydration with normal saline at 75cc per hour - NPO until after [employer] eval -Replace electrolytes prn-Keep K >4.0, Mg > 2.0. - Head of bed > 30 degrees for aspiration prevention and aspiration precautions Stroke workup: -CTH:no acute intracranial process. left occipital and left BG hypodensity favored to be remote infarct -stat CTA head and neck:if LVO get stat neuro interventional consult -MRI: -Trans-thoracic echocardiogram with buble study -Continuous cardiac telemetry to monitor for arrhythmia -Stroke labwork: HgbA1C, lipid panel, urine drug screen Secondary prevention of stroke: -Aspirin 325mg daily -rosuvastatin 40 mg daily (long-term goal LDL < 70) -Tight glucose control (long-term goal HgbA1c < 7%) -Stroke education and counseling -If smoker, smoking counseling and offer assistance with smoking cessation (possible nicotine patch) Stroke rehabilitation: -Physical therapy, occupational therapy, speech therapy consults -Consult social work and case management for help with discharge Code(s): R53.1 - WEAKNESS (3) Type II diabetes mellitus Current Visit: Yes Status: Chronic Assessment & Plan: - A1C - Oral controlled at home - hold metformin - accuchecks ac/hs, humalog mod dose s/s (4) HTN (hypertension) Current Visit: Yes Status: Acute Assessment & Plan: - Permissive HTN for 24h:systolic BP goal up to 220, diastolic up to 110 mmHg for 24h - Hold BP meds for now Code(s): I10 - ESSENTIAL (PRIMARY) HYPERTENSION (5) Hyponatremia Current Visit: Yes Status: Acute Assessment & Plan: - mild- 131- trend - NS @ 75 ml/hr per neurology recs Code(s): E87.1 - HYPO-OSMOLALITY AND HYPONATREMIA (6) Hyperlipidemia Current Visit: Yes Status: Acute Assessment & Plan: - Zocor 40 daily. - He does take Crestor OP this is not formulary here - See neuro consult- we do not carry medication recommended. VTE: Heparin D/C plan: 1-2 days Code status: Full Code(s): E78.5 - HYPERLIPIDEMIA, UNSPECIFIED <YOKO PARKER - Last Filed: 06/21/24 16:49> History of Present Illness - Chief Complaint History of Present Illness: is a 59 year old male. - Physical Exam Vital Signs: Vital Signs - 24 hr Temp Pulse Resp BP BP Pulse Ox 06/21/24 16:00 98.2 F 62 17 126/64 97 06/21/24 11:42 74 16 99 06/21/24 11:34 98.8 F 76 18 131/72 96 06/21/24 10:16 99 06/21/24 10:00 79 14 148/77 96 06/21/24 09:30 86 16 131/68 95 06/21/24 09:00 81 17 148/72 98 06/21/24 08:30 75 17 157/87 96 06/21/24 08:26 87 21 138/81 98 06/21/24 08:16 98 06/21/24 07:32 98.2 F 89 16 169/79 99 06/21/24 07:30 88 14 152/79 97 Results - Labs Lab/Micro Results: Lab Results-Last 24 Hours 06/21/24 06/21/24 06/21/24 Range/Units 07:50 07:50 07:50 WBC 10.5 H (4.23-9.07) x10^3/uL RBC 5.49 (4.63-6.08) x10^6/uL Hgb 16.5 (13.7-17.5) g/dL Hct 47.2 (40.1-51.0) % MCV 86.0 (79.0-92.2) fL MCH 30.1 (25.7-32.2) pg MCHC 35.0 (32.3-36.5) g/dL RDW 13.2 (11.6-14.4) % Plt Count 296 (163-337) x10^3/uL MPV 9.5 (9.4-12.4) fL Gran % 76.9 H (34.0-67.9) % Immature Gran % (Auto) 0.4 (0.001-0.429) % Nucleat RBC Rel Count 0.0 (0.00-0.2) % Eos # (Auto) 0.08 (0.04-0.54) x10^3/uL Immature Gran # (Auto) 0.04 H (0.001-0.031) x10^3u/L Absolute Lymphs (auto) 1.66 (1.32-3.57) x10^3/uL Absolute Monos (auto) 0.59 (0.30-0.82) x10^3/uL Absolute Nucleated RBC 0.00 (0.00-0.012) x10^3u/L Lymphocytes % 15.7 L (21.8-53.1) % Monocytes % 5.6 (5.3-12.2) % Eosinophils % 0.8 (0.8-7.0) % Basophils % 0.6 (0.2-1.2) % Absolute Granulocytes 8.11 H (1.78-5.38) x10^3/uL Basophils # 0.06 (0.01-0.08) x10^3/uL ESR (0-15) mm/hr PT (9.4-12.5) SECONDS INR (0.8-3.0) Sodium 131 L (135-145) mmol/L Potassium 4.1 (3.5-5.1) mmol/L Chloride 97 L (98-107) mmol/L Carbon Dioxide 25 (22-30) mmol/L Anion Gap 13.9 (5-15) MEQ/L BUN 13 (9-20) mg/dL Creatinine 0.80 (0.66-1.25) mg/dL Estimated GFR 101.3 ML/MIN Glucose 236 H (74-106) mg/dL POC Glucometer (74 to 106) mg/dL Hemoglobin A1c (4.5-6.0) % Lactic Acid 1.8 (0.4-2.0) Calcium 9.7 (8.4-10.2) mg/dL Magnesium (1.6-2.3) mg/dL Total Bilirubin 0.80 (0.2-1.3) mg/dL AST 28 (17-59) U/L ALT 33 (0-50) U/L Alkaline Phosphatase 64 (38-126) U/L Troponin I (0.000-0.033) ng/mL NT-Pro-B Natriuret Pep 31.6 (<300) pg/mL Serum Total Protein 7.2 (6.3-8.2) g/dL Albumin 4.6 (3.5-5.0) g/dL TSH 3rd Generation (0.470-4.680) mIU/L Urine Color (Yellow) Urine Appearance (Clear) Urine pH (4.6-8.0) Ur Specific [place] (1.005-1.030) Urine Protein (Negative) Urine Glucose (UA) (Negative) mg/dL Urine Ketones (Negative) Urine Blood (Negative) Urine Nitrite (Negative) Urine Bilirubin (Negative) Urine Urobilinogen (0.2) mg/dL Ur Leukocyte Esterase (Negative) U Hyaline Cast (Auto) (0-2) /LPF Urine Microscopic RBC (0-5) /HPF Urine Microscopic WBC (0-5) /HPF Ur Epithelial Cells (None Seen) /HPF Urine Bacteria (None Seen) /HPF Urine Culture Reflexed (NO) Urine Opiates Level (NEGATIVE) Ur Methadone (NEGATIVE) Urine Barbiturates (NEGATIVE) Ur Phencyclidine (PCP) (NEGATIVE) Urine Amphetamine (NEGATIVE) U Benzodiazepine Level (NEGATIVE) Urine Cocaine (NEGATIVE) Urine Marijuana (THC) (NEGATIVE) 06/21/24 06/21/24 06/21/24 Range/Units 07:50 07:50 08:16 WBC (4.23-9.07) x10^3/uL RBC (4.63-6.08) x10^6/uL Hgb (13.7-17.5) g/dL Hct (40.1-51.0) % MCV (79.0-92.2) fL MCH (25.7-32.2) pg MCHC (32.3-36.5) g/dL RDW (11.6-14.4) % Plt Count (163-337) x10^3/uL MPV (9.4-12.4) fL Gran % (34.0-67.9) % Immature Gran % (Auto) (0.001-0.429) % Nucleat RBC Rel Count (0.00-0.2) % Eos # (Auto) (0.04-0.54) x10^3/uL Immature Gran # (Auto) (0.001-0.031) x10^3u/L Absolute Lymphs (auto) (1.32-3.57) x10^3/uL Absolute Monos (auto) (0.30-0.82) x10^3/uL Absolute Nucleated RBC (0.00-0.012) x10^3u/L Lymphocytes % (21.8-53.1) % Monocytes % (5.3-12.2) % Eosinophils % (0.8-7.0) % Basophils % (0.2-1.2) % Absolute Granulocytes (1.78-5.38) x10^3/uL Basophils # (0.01-0.08) x10^3/uL ESR 4 (0-15) mm/hr PT (9.4-12.5) SECONDS INR (0.8-3.0) Sodium (135-145) mmol/L Potassium (3.5-5.1) mmol/L Chloride (98-107) mmol/L Carbon Dioxide (22-30) mmol/L Anion Gap (5-15) MEQ/L BUN (9-20) mg/dL Creatinine (0.66-1.25) mg/dL Estimated GFR ML/MIN Glucose (74-106) mg/dL POC Glucometer (74 to 106) mg/dL Hemoglobin A1c (4.5-6.0) % Lactic Acid (0.4-2.0) Calcium (8.4-10.2) mg/dL Magnesium (1.6-2.3) mg/dL Total Bilirubin (0.2-1.3) mg/dL AST (17-59) U/L ALT (0-50) U/L Alkaline Phosphatase (38-126) U/L Troponin I < 0.012 (0.000-0.033) ng/mL NT-Pro-B Natriuret Pep (<300) pg/mL Serum Total Protein (6.3-8.2) g/dL Albumin (3.5-5.0) g/dL TSH 3rd Generation (0.470-4.680) mIU/L Urine Color Yellow (Yellow) Urine Appearance Clear (Clear) Urine pH 7.5 (4.6-8.0) Ur Specific [place] 1.020 (1.005-1.030) Urine Protein Negative (Negative) Urine Glucose (UA) >=1000 A (Negative) mg/dL Urine Ketones Negative (Negative) Urine Blood Negative (Negative) Urine Nitrite Negative (Negative) Urine Bilirubin Negative (Negative) Urine Urobilinogen 0.2 (0.2) mg/dL Ur Leukocyte Esterase Negative (Negative) U Hyaline Cast (Auto) NONE SEEN (0-2) /LPF Urine Microscopic RBC 0-2 (0-5) /HPF Urine Microscopic WBC 0-2 (0-5) /HPF Ur Epithelial Cells None Seen (None Seen) /HPF Urine Bacteria None Seen (None Seen) /HPF Urine Culture Reflexed NO (NO) Urine Opiates Level (NEGATIVE) Ur Methadone (NEGATIVE) Urine Barbiturates (NEGATIVE) Ur Phencyclidine (PCP) (NEGATIVE) Urine Amphetamine (NEGATIVE) U Benzodiazepine Level (NEGATIVE) Urine Cocaine (NEGATIVE) Urine Marijuana (THC) (NEGATIVE) 06/21/24 06/21/24 06/21/24 Range/Units 08:16 08:16 11:51 WBC (4.23-9.07) x10^3/uL RBC (4.63-6.08) x10^6/uL Hgb (13.7-17.5) g/dL Hct (40.1-51.0) % MCV (79.0-92.2) fL MCH (25.7-32.2) pg MCHC (32.3-36.5) g/dL RDW (11.6-14.4) % Plt Count (163-337) x10^3/uL MPV (9.4-12.4) fL Gran % (34.0-67.9) % Immature Gran % (Auto) (0.001-0.429) % Nucleat RBC Rel Count (0.00-0.2) % Eos # (Auto) (0.04-0.54) x10^3/uL Immature Gran # (Auto) (0.001-0.031) x10^3u/L Absolute Lymphs (auto) (1.32-3.57) x10^3/uL Absolute Monos (auto) (0.30-0.82) x10^3/uL Absolute Nucleated RBC (0.00-0.012) x10^3u/L Lymphocytes % (21.8-53.1) % Monocytes % (5.3-12.2) % Eosinophils % (0.8-7.0) % Basophils % (0.2-1.2) % Absolute Granulocytes (1.78-5.38) x10^3/uL Basophils # (0.01-0.08) x10^3/uL ESR (0-15) mm/hr PT (9.4-12.5) SECONDS INR (0.8-3.0) Sodium (135-145) mmol/L Potassium (3.5-5.1) mmol/L Chloride (98-107) mmol/L Carbon Dioxide (22-30) mmol/L Anion Gap (5-15) MEQ/L BUN (9-20) mg/dL Creatinine (0.66-1.25) mg/dL Estimated GFR ML/MIN Glucose (74-106) mg/dL POC Glucometer 76 (74 to 106) mg/dL Hemoglobin A1c (4.5-6.0) % Lactic Acid (0.4-2.0) Calcium (8.4-10.2) mg/dL Magnesium 1.9 (1.6-2.3) mg/dL Total Bilirubin (0.2-1.3) mg/dL AST (17-59) U/L ALT (0-50) U/L Alkaline Phosphatase (38-126) U/L Troponin I (0.000-0.033) ng/mL NT-Pro-B Natriuret Pep (<300) pg/mL Serum Total Protein (6.3-8.2) g/dL Albumin (3.5-5.0) g/dL TSH 3rd Generation 1.334 (0.470-4.680) mIU/L Urine Color (Yellow) Urine Appearance (Clear) Urine pH (4.6-8.0) Ur Specific [place] (1.005-1.030) Urine Protein (Negative) Urine Glucose (UA) (Negative) mg/dL Urine Ketones (Negative) Urine Blood (Negative) Urine Nitrite (Negative) Urine Bilirubin (Negative) Urine Urobilinogen (0.2) mg/dL Ur Leukocyte Esterase (Negative) U Hyaline Cast (Auto) (0-2) /LPF Urine Microscopic RBC (0-5) /HPF Urine Microscopic WBC (0-5) /HPF Ur Epithelial Cells (None Seen) /HPF Urine Bacteria (None Seen) /HPF Urine Culture Reflexed (NO) Urine Opiates Level (NEGATIVE) Ur Methadone (NEGATIVE) Urine Barbiturates (NEGATIVE) Ur Phencyclidine (PCP) (NEGATIVE) Urine Amphetamine (NEGATIVE) U Benzodiazepine Level (NEGATIVE) Urine Cocaine (NEGATIVE) Urine Marijuana (THC) (NEGATIVE) 06/21/24 06/21/24 06/21/24 Range/Units 12:13 16:02 16:22 WBC (4.23-9.07) x10^3/uL RBC (4.63-6.08) x10^6/uL Hgb (13.7-17.5) g/dL Hct (40.1-51.0) % MCV (79.0-92.2) fL MCH (25.7-32.2) pg MCHC (32.3-36.5) g/dL RDW (11.6-14.4) % Plt Count (163-337) x10^3/uL MPV (9.4-12.4) fL Gran % (34.0-67.9) % Immature Gran % (Auto) (0.001-0.429) % Nucleat RBC Rel Count (0.00-0.2) % Eos # (Auto) (0.04-0.54) x10^3/uL Immature Gran # (Auto) (0.001-0.031) x10^3u/L Absolute Lymphs (auto) (1.32-3.57) x10^3/uL Absolute Monos (auto) (0.30-0.82) x10^3/uL Absolute Nucleated RBC (0.00-0.012) x10^3u/L Lymphocytes % (21.8-53.1) % Monocytes % (5.3-12.2) % Eosinophils % (0.8-7.0) % Basophils % (0.2-1.2) % Absolute Granulocytes (1.78-5.38) x10^3/uL Basophils # (0.01-0.08) x10^3/uL ESR (0-15) mm/hr PT (9.4-12.5) SECONDS INR (0.8-3.0) Sodium (135-145) mmol/L Potassium (3.5-5.1) mmol/L Chloride (98-107) mmol/L Carbon Dioxide (22-30) mmol/L Anion Gap (5-15) MEQ/L BUN (9-20) mg/dL Creatinine (0.66-1.25) mg/dL Estimated GFR ML/MIN Glucose (74-106) mg/dL POC Glucometer 157 H (74 to 106) mg/dL Hemoglobin A1c (4.5-6.0) % Lactic Acid (0.4-2.0) Calcium (8.4-10.2) mg/dL Magnesium (1.6-2.3) mg/dL Total Bilirubin (0.2-1.3) mg/dL AST (17-59) U/L ALT (0-50) U/L Alkaline Phosphatase (38-126) U/L Troponin I < 0.012 < 0.012 (0.000-0.033) ng/mL NT-Pro-B Natriuret Pep (<300) pg/mL Serum Total Protein (6.3-8.2) g/dL Albumin (3.5-5.0) g/dL TSH 3rd Generation (0.470-4.680) mIU/L Urine Color (Yellow) Urine Appearance (Clear) Urine pH (4.6-8.0) Ur Specific [place] (1.005-1.030) Urine Protein (Negative) Urine Glucose (UA) (Negative) mg/dL Urine Ketones (Negative) Urine Blood (Negative) Urine Nitrite (Negative) Urine Bilirubin (Negative) Urine Urobilinogen (0.2) mg/dL Ur Leukocyte Esterase (Negative) U Hyaline Cast (Auto) (0-2) /LPF Urine Microscopic RBC (0-5) /HPF Urine Microscopic WBC (0-5) /HPF Ur Epithelial Cells (None Seen) /HPF Urine Bacteria (None Seen) /HPF Urine Culture Reflexed (NO) Urine Opiates Level (NEGATIVE) Ur Methadone (NEGATIVE) Urine Barbiturates (NEGATIVE) Ur Phencyclidine (PCP) (NEGATIVE) Urine Amphetamine (NEGATIVE) U Benzodiazepine Level (NEGATIVE) Urine Cocaine (NEGATIVE) Urine Marijuana (THC) (NEGATIVE) 06/21/24 06/21/24 06/21/24 Range/Units Unknown Unknown Unknown WBC (4.23-9.07) x10^3/uL RBC (4.63-6.08) x10^6/uL Hgb (13.7-17.5) g/dL Hct (40.1-51.0) % MCV (79.0-92.2) fL MCH (25.7-32.2) pg MCHC (32.3-36.5) g/dL RDW (11.6-14.4) % Plt Count (163-337) x10^3/uL MPV (9.4-12.4) fL Gran % (34.0-67.9) % Immature Gran % (Auto) (0.001-0.429) % Nucleat RBC Rel Count (0.00-0.2) % Eos # (Auto) (0.04-0.54) x10^3/uL Immature Gran # (Auto) (0.001-0.031) x10^3u/L Absolute Lymphs (auto) (1.32-3.57) x10^3/uL Absolute Monos (auto) (0.30-0.82) x10^3/uL Absolute Nucleated RBC (0.00-0.012) x10^3u/L Lymphocytes % (21.8-53.1) % Monocytes % (5.3-12.2) % Eosinophils % (0.8-7.0) % Basophils % (0.2-1.2) % Absolute Granulocytes (1.78-5.38) x10^3/uL Basophils # (0.01-0.08) x10^3/uL ESR (0-15) mm/hr PT 10.3 (9.4-12.5) SECONDS INR 0.94 (0.8-3.0) Sodium (135-145) mmol/L Potassium (3.5-5.1) mmol/L Chloride (98-107) mmol/L Carbon Dioxide (22-30) mmol/L Anion Gap (5-15) MEQ/L BUN (9-20) mg/dL Creatinine (0.66-1.25) mg/dL Estimated GFR ML/MIN Glucose (74-106) mg/dL POC Glucometer (74 to 106) mg/dL Hemoglobin A1c 6.28 H (4.5-6.0) % Lactic Acid (0.4-2.0) Calcium (8.4-10.2) mg/dL Magnesium (1.6-2.3) mg/dL Total Bilirubin (0.2-1.3) mg/dL AST (17-59) U/L ALT (0-50) U/L Alkaline Phosphatase (38-126) U/L Troponin I (0.000-0.033) ng/mL NT-Pro-B Natriuret Pep (<300) pg/mL Serum Total Protein (6.3-8.2) g/dL Albumin (3.5-5.0) g/dL TSH 3rd Generation (0.470-4.680) mIU/L Urine Color (Yellow) Urine Appearance (Clear) Urine pH (4.6-8.0) Ur Specific [place] (1.005-1.030) Urine Protein (Negative) Urine Glucose (UA) (Negative) mg/dL Urine Ketones (Negative) Urine Blood (Negative) Urine Nitrite (Negative) Urine Bilirubin (Negative) Urine Urobilinogen (0.2) mg/dL Ur Leukocyte Esterase (Negative) U Hyaline Cast (Auto) (0-2) /LPF Urine Microscopic RBC (0-5) /HPF Urine Microscopic WBC (0-5) /HPF Ur Epithelial Cells (None Seen) /HPF Urine Bacteria (None Seen) /HPF Urine Culture Reflexed (NO) Urine Opiates Level NEGATIVE (NEGATIVE) Ur Methadone NEGATIVE (NEGATIVE) Urine Barbiturates NEGATIVE (NEGATIVE) Ur Phencyclidine (PCP) NEGATIVE (NEGATIVE) Urine Amphetamine NEGATIVE (NEGATIVE) U Benzodiazepine Level NEGATIVE (NEGATIVE) Urine Cocaine NEGATIVE (NEGATIVE) Urine Marijuana (THC) NEGATIVE (NEGATIVE) Accuchecks Date 06/21/24 Date 06/21/24 Time 16:36 Time 12:23 - Radiology Impressions Radiology Exams & Impressions: Radiology Procedures Category Date Time Status CHEST 2 VIEWS (PA AND LAT) Routine Exams 06/21/24 14:[address] ANGIOGRAPHY NECK [CT] Stat Exams 06/21/24 09:58 Completed CTA HEAD W AND/OR WO CONTRAST [CT] Stat Exams 06/21/24 09:58 Completed ECHO W/2D AND DOPPLER [US] Routine Exams 06/22/24 08:00 Ordered HEAD WITHOUT CONTRAST [CT] Stat Exams 06/21/24 07:57 Completed MRI BRAIN WITH CONTRAST [MRI] Routine Exams 06/22/24 08:00 Ordered
[2024-06-21 12:33] LABS: INR 0.94 (0.8-3.0); PROTIME 10.3 SECONDS (9.4-12.5)
[2024-06-21] MEDS ORDERED: MEDICATION INTERVENTION MC SCH ×2 (12:45)
[2024-06-21 13:42] LABS: Amphetamine,Urine NEGATIVE (NEGATIVE); Barbiturate,Urine NEGATIVE (NEGATIVE); Benzodiazepine,Urine NEGATIVE (NEGATIVE); Cocaine,Urine NEGATIVE (NEGATIVE); Methadone,Urine NEGATIVE (NEGATIVE); Opiate,Urine NEGATIVE (NEGATIVE); PCP,Urine NEGATIVE (NEGATIVE); THC,Urine NEGATIVE (NEGATIVE)
[2024-06-21] MEDS ORDERED: PATIENT OWN MEDICATION PO SCH (14:00)
[2024-06-21] MEDS: HUMALOG SQ PRN (16:34)
[2024-06-21] MEDS: PATIENT OWN MEDICATION OP SCH (19:56)
--- NOTE | 2024-06-21 20:08 | XRAY ---
Indication: Bilateral lung crackles. Comparison: December 29, 2007 PA/lateral chest remains inflated and clear. Heart and mediastinal structures within normal limits. Bony thorax intact with osteopenia and mild degenerative changes. Impression: Continued nonacute chest.
[2024-06-21] MEDS: Glucotrol 5 MG PO SCH (21:04)
[2024-06-21] MEDS: ZOCOR 20MG PO SCH (21:05)
[2024-06-21] MEDS: HEPARIN 5000 UNITS/0.5 ML (HIGH RISK MED) SQ SCH (21:05)
[2024-06-21] MEDS: Xalatan OP SCH (21:11)
[2024-06-21] MEDS ORDERED: CYCLOSPORINE OP SCH (22:00)
[2024-06-21] MEDS ORDERED: PATIENT OWN MEDICATION OP SCH (22:00)
[2024-06-21] MEDS ORDERED: NON-FORMULARY ITEM (Latanoprost/Pf [Latanoprost 0.005% Eye Drop] 7.5 ML Drops) OP SCH (22:00)
[2024-06-22 04:47] LABS: Hemoglobin 15.8 g/dL (13.7-17.5); Mean Cell Volume 85.2 fL (79.0-92.2); Mean Corpuscular Hemoglobin 29.3 pg (25.7-32.2); Mean Corpuscular Hgb Concent. 34.3 g/dL (32.3-36.5); Mean Platelet Volume 9.1 fL (9.4-12.4); Platelet Count 250 x10^3/uL (163-337); Red Cell Distribution Width 13.3 % (11.6-14.4); White Blood Count 9.7 x10^3/uL (4.23-9.07)
--- NOTE | 2024-06-22 05:03 | PCM.NOTE ---
Date and Time: 06/22/24 0459 Subjective Assessment: HPI: is a 59 year old male with PMHX of CAD, hyperlipidemia, TIA, HTN, prior stents for CAD, and Type II DM ( oral controlled) admitted 06/21/24 with left- sided weakness/numbness and tingling. CT head with no acute intracranial process. left occipital and left BG hypodensity favored to be remote infarct. Normal CT angiography of the head. No evidence of significant vascular abnormalities, acute infarct, or hemorrhage.Mild atherosclerotic changes seen in the visualized arteries.Neurology consulted in ED with recommendations for admit with MRI/ECHO. Patient is already on 81mg ASA daily, will increase his atorvastatin from 10mg to 40mg daily. 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 Objective Data Vital Signs: Vital Signs - 24 hr Temp Pulse Resp BP BP Pulse Ox 06/22/24 04:00 98.4 F 67 18 130/70 95 06/21/24 23:33 98.7 F 80 18 120/71 96 06/21/24 20:00 98.4 F 67 17 137/66 96 06/21/24 16:00 98.2 F 62 17 126/64 97 06/21/24 11:42 74 16 99 06/21/24 11:34 98.8 F 76 18 131/72 96 06/21/24 10:16 99 06/21/24 10:00 79 14 148/77 96 06/21/24 09:30 86 16 131/68 95 06/21/24 09:00 81 17 148/72 98 06/21/24 08:30 75 17 157/87 96 06/21/24 08:26 87 21 138/81 98 06/21/24 08:16 98 06/21/24 07:32 98.2 F 89 16 169/79 99 06/21/24 07:30 88 14 152/79 97 Pain Assessment - Last Documented Pain Intensity 0 Intake and Output: Intake & Output 06/19/24 06/20/24 06/21/24 06/22/24 11:59 11:59 11:59 11:59 Intake Total 2165 Output Total 125 Balance 2040 Weight 85.8 kg Lab Results: Lab Results-Last 24 Hours 06/21/24 06/21/24 06/21/24 Range/Units 07:50 07:50 07:50 WBC 10.5 H (4.23-9.07) x10^3/uL RBC 5.49 (4.63-6.08) x10^6/uL Hgb 16.5 (13.7-17.5) g/dL Hct 47.2 (40.1-51.0) % MCV 86.0 (79.0-92.2) fL MCH 30.1 (25.7-32.2) pg MCHC 35.0 (32.3-36.5) g/dL RDW 13.2 (11.6-14.4) % Plt Count 296 (163-337) x10^3/uL MPV 9.5 (9.4-12.4) fL Gran % 76.9 H (34.0-67.9) % Immature Gran % (Auto) 0.4 (0.001-0.429) % Nucleat RBC Rel Count 0.0 (0.00-0.2) % Eos # (Auto) 0.08 (0.04-0.54) x10^3/uL Immature Gran # (Auto) 0.04 H (0.001-0.031) x10^3u/L Absolute Lymphs (auto) 1.66 (1.32-3.57) x10^3/uL Absolute Monos (auto) 0.59 (0.30-0.82) x10^3/uL Absolute Nucleated RBC 0.00 (0.00-0.012) x10^3u/L Lymphocytes % 15.7 L (21.8-53.1) % Monocytes % 5.6 (5.3-12.2) % Eosinophils % 0.8 (0.8-7.0) % Basophils % 0.6 (0.2-1.2) % Absolute Granulocytes 8.11 H (1.78-5.38) x10^3/uL Basophils # 0.06 (0.01-0.08) x10^3/uL ESR (0-15) mm/hr PT (9.4-12.5) SECONDS INR (0.8-3.0) Sodium 131 L (135-145) mmol/L Potassium 4.1 (3.5-5.1) mmol/L Chloride 97 L (98-107) mmol/L Carbon Dioxide 25 (22-30) mmol/L Anion Gap 13.9 (5-15) MEQ/L BUN 13 (9-20) mg/dL Creatinine 0.80 (0.66-1.25) mg/dL Estimated GFR 101.3 ML/MIN Glucose 236 H (74-106) mg/dL POC Glucometer (74 to 106) mg/dL Hemoglobin A1c (4.5-6.0) % Lactic Acid 1.8 (0.4-2.0) Calcium 9.7 (8.4-10.2) mg/dL Magnesium (1.6-2.3) mg/dL Total Bilirubin 0.80 (0.2-1.3) mg/dL AST 28 (17-59) U/L ALT 33 (0-50) U/L Alkaline Phosphatase 64 (38-126) U/L Troponin I (0.000-0.033) ng/mL NT-Pro-B Natriuret Pep 31.6 (<300) pg/mL Serum Total Protein 7.2 (6.3-8.2) g/dL Albumin 4.6 (3.5-5.0) g/dL TSH 3rd Generation (0.470-4.680) mIU/L Urine Color (Yellow) Urine Appearance (Clear) Urine pH (4.6-8.0) Ur Specific [place] (1.005-1.030) Urine Protein (Negative) Urine Glucose (UA) (Negative) mg/dL Urine Ketones (Negative) Urine Blood (Negative) Urine Nitrite (Negative) Urine Bilirubin (Negative) Urine Urobilinogen (0.2) mg/dL Ur Leukocyte Esterase (Negative) U Hyaline Cast (Auto) (0-2) /LPF Urine Microscopic RBC (0-5) /HPF Urine Microscopic WBC (0-5) /HPF Ur Epithelial Cells (None Seen) /HPF Urine Bacteria (None Seen) /HPF Urine Culture Reflexed (NO) Urine Opiates Level (NEGATIVE) Ur Methadone (NEGATIVE) Urine Barbiturates (NEGATIVE) Ur Phencyclidine (PCP) (NEGATIVE) Urine Amphetamine (NEGATIVE) U Benzodiazepine Level (NEGATIVE) Urine Cocaine (NEGATIVE) Urine Marijuana (THC) (NEGATIVE) 06/21/24 06/21/24 06/21/24 Range/Units 07:50 07:50 08:16 WBC (4.23-9.07) x10^3/uL RBC (4.63-6.08) x10^6/uL Hgb (13.7-17.5) g/dL Hct (40.1-51.0) % MCV (79.0-92.2) fL MCH (25.7-32.2) pg MCHC (32.3-36.5) g/dL RDW (11.6-14.4) % Plt Count (163-337) x10^3/uL MPV (9.4-12.4) fL Gran % (34.0-67.9) % Immature Gran % (Auto) (0.001-0.429) % Nucleat RBC Rel Count (0.00-0.2) % Eos # (Auto) (0.04-0.54) x10^3/uL Immature Gran # (Auto) (0.001-0.031) x10^3u/L Absolute Lymphs (auto) (1.32-3.57) x10^3/uL Absolute Monos (auto) (0.30-0.82) x10^3/uL Absolute Nucleated RBC (0.00-0.012) x10^3u/L Lymphocytes % (21.8-53.1) % Monocytes % (5.3-12.2) % Eosinophils % (0.8-7.0) % Basophils % (0.2-1.2) % Absolute Granulocytes (1.78-5.38) x10^3/uL Basophils # (0.01-0.08) x10^3/uL ESR 4 (0-15) mm/hr PT (9.4-12.5) SECONDS INR (0.8-3.0) Sodium (135-145) mmol/L Potassium (3.5-5.1) mmol/L Chloride (98-107) mmol/L Carbon Dioxide (22-30) mmol/L Anion Gap (5-15) MEQ/L BUN (9-20) mg/dL Creatinine (0.66-1.25) mg/dL Estimated GFR ML/MIN Glucose (74-106) mg/dL POC Glucometer (74 to 106) mg/dL Hemoglobin A1c (4.5-6.0) % Lactic Acid (0.4-2.0) Calcium (8.4-10.2) mg/dL Magnesium (1.6-2.3) mg/dL Total Bilirubin (0.2-1.3) mg/dL AST (17-59) U/L ALT (0-50) U/L Alkaline Phosphatase (38-126) U/L Troponin I < 0.012 (0.000-0.033) ng/mL NT-Pro-B Natriuret Pep (<300) pg/mL Serum Total Protein (6.3-8.2) g/dL Albumin (3.5-5.0) g/dL TSH 3rd Generation (0.470-4.680) mIU/L Urine Color Yellow (Yellow) Urine Appearance Clear (Clear) Urine pH 7.5 (4.6-8.0) Ur Specific [place] 1.020 (1.005-1.030) Urine Protein Negative (Negative) Urine Glucose (UA) >=1000 A (Negative) mg/dL Urine Ketones Negative (Negative) Urine Blood Negative (Negative) Urine Nitrite Negative (Negative) Urine Bilirubin Negative (Negative) Urine Urobilinogen 0.2 (0.2) mg/dL Ur Leukocyte Esterase Negative (Negative) U Hyaline Cast (Auto) NONE SEEN (0-2) /LPF Urine Microscopic RBC 0-2 (0-5) /HPF Urine Microscopic WBC 0-2 (0-5) /HPF Ur Epithelial Cells None Seen (None Seen) /HPF Urine Bacteria None Seen (None Seen) /HPF Urine Culture Reflexed NO (NO) Urine Opiates Level (NEGATIVE) Ur Methadone (NEGATIVE) Urine Barbiturates (NEGATIVE) Ur Phencyclidine (PCP) (NEGATIVE) Urine Amphetamine (NEGATIVE) U Benzodiazepine Level (NEGATIVE) Urine Cocaine (NEGATIVE) Urine Marijuana (THC) (NEGATIVE) 06/21/24 06/21/24 06/21/24 Range/Units 08:16 08:16 11:51 WBC (4.23-9.07) x10^3/uL RBC (4.63-6.08) x10^6/uL Hgb (13.7-17.5) g/dL Hct (40.1-51.0) % MCV (79.0-92.2) fL MCH (25.7-32.2) pg MCHC (32.3-36.5) g/dL RDW (11.6-14.4) % Plt Count (163-337) x10^3/uL MPV (9.4-12.4) fL Gran % (34.0-67.9) % Immature Gran % (Auto) (0.001-0.429) % Nucleat RBC Rel Count (0.00-0.2) % Eos # (Auto) (0.04-0.54) x10^3/uL Immature Gran # (Auto) (0.001-0.031) x10^3u/L Absolute Lymphs (auto) (1.32-3.57) x10^3/uL Absolute Monos (auto) (0.30-0.82) x10^3/uL Absolute Nucleated RBC (0.00-0.012) x10^3u/L Lymphocytes % (21.8-53.1) % Monocytes % (5.3-12.2) % Eosinophils % (0.8-7.0) % Basophils % (0.2-1.2) % Absolute Granulocytes (1.78-5.38) x10^3/uL Basophils # (0.01-0.08) x10^3/uL ESR (0-15) mm/hr PT (9.4-12.5) SECONDS INR (0.8-3.0) Sodium (135-145) mmol/L Potassium (3.5-5.1) mmol/L Chloride (98-107) mmol/L Carbon Dioxide (22-30) mmol/L Anion Gap (5-15) MEQ/L BUN (9-20) mg/dL Creatinine (0.66-1.25) mg/dL Estimated GFR ML/MIN Glucose (74-106) mg/dL POC Glucometer 76 (74 to 106) mg/dL Hemoglobin A1c (4.5-6.0) % Lactic Acid (0.4-2.0) Calcium (8.4-10.2) mg/dL Magnesium 1.9 (1.6-2.3) mg/dL Total Bilirubin (0.2-1.3) mg/dL AST (17-59) U/L ALT (0-50) U/L Alkaline Phosphatase (38-126) U/L Troponin I (0.000-0.033) ng/mL NT-Pro-B Natriuret Pep (<300) pg/mL Serum Total Protein (6.3-8.2) g/dL Albumin (3.5-5.0) g/dL TSH 3rd Generation 1.334 (0.470-4.680) mIU/L Urine Color (Yellow) Urine Appearance (Clear) Urine pH (4.6-8.0) Ur Specific [place] (1.005-1.030) Urine Protein (Negative) Urine Glucose (UA) (Negative) mg/dL Urine Ketones (Negative) Urine Blood (Negative) Urine Nitrite (Negative) Urine Bilirubin (Negative) Urine Urobilinogen (0.2) mg/dL Ur Leukocyte Esterase (Negative) U Hyaline Cast (Auto) (0-2) /LPF Urine Microscopic RBC (0-5) /HPF Urine Microscopic WBC (0-5) /HPF Ur Epithelial Cells (None Seen) /HPF Urine Bacteria (None Seen) /HPF Urine Culture Reflexed (NO) Urine Opiates Level (NEGATIVE) Ur Methadone (NEGATIVE) Urine Barbiturates (NEGATIVE) Ur Phencyclidine (PCP) (NEGATIVE) Urine Amphetamine (NEGATIVE) U Benzodiazepine Level (NEGATIVE) Urine Cocaine (NEGATIVE) Urine Marijuana (THC) (NEGATIVE) 06/21/24 06/21/24 06/21/24 Range/Units 12:13 16:02 16:22 WBC (4.23-9.07) x10^3/uL RBC (4.63-6.08) x10^6/uL Hgb (13.7-17.5) g/dL Hct (40.1-51.0) % MCV (79.0-92.2) fL MCH (25.7-32.2) pg MCHC (32.3-36.5) g/dL RDW (11.6-14.4) % Plt Count (163-337) x10^3/uL MPV (9.4-12.4) fL Gran % (34.0-67.9) % Immature Gran % (Auto) (0.001-0.429) % Nucleat RBC Rel Count (0.00-0.2) % Eos # (Auto) (0.04-0.54) x10^3/uL Immature Gran # (Auto) (0.001-0.031) x10^3u/L Absolute Lymphs (auto) (1.32-3.57) x10^3/uL Absolute Monos (auto) (0.30-0.82) x10^3/uL Absolute Nucleated RBC (0.00-0.012) x10^3u/L Lymphocytes % (21.8-53.1) % Monocytes % (5.3-12.2) % Eosinophils % (0.8-7.0) % Basophils % (0.2-1.2) % Absolute Granulocytes (1.78-5.38) x10^3/uL Basophils # (0.01-0.08) x10^3/uL ESR (0-15) mm/hr PT (9.4-12.5) SECONDS INR (0.8-3.0) Sodium (135-145) mmol/L Potassium (3.5-5.1) mmol/L Chloride (98-107) mmol/L Carbon Dioxide (22-30) mmol/L Anion Gap (5-15) MEQ/L BUN (9-20) mg/dL Creatinine (0.66-1.25) mg/dL Estimated GFR ML/MIN Glucose (74-106) mg/dL POC Glucometer 157 H (74 to 106) mg/dL Hemoglobin A1c (4.5-6.0) % Lactic Acid (0.4-2.0) Calcium (8.4-10.2) mg/dL Magnesium (1.6-2.3) mg/dL Total Bilirubin (0.2-1.3) mg/dL AST (17-59) U/L ALT (0-50) U/L Alkaline Phosphatase (38-126) U/L Troponin I < 0.012 < 0.012 (0.000-0.033) ng/mL NT-Pro-B Natriuret Pep (<300) pg/mL Serum Total Protein (6.3-8.2) g/dL Albumin (3.5-5.0) g/dL TSH 3rd Generation (0.470-4.680) mIU/L Urine Color (Yellow) Urine Appearance (Clear) Urine pH (4.6-8.0) Ur Specific [place] (1.005-1.030) Urine Protein (Negative) Urine Glucose (UA) (Negative) mg/dL Urine Ketones (Negative) Urine Blood (Negative) Urine Nitrite (Negative) Urine Bilirubin (Negative) Urine Urobilinogen (0.2) mg/dL Ur Leukocyte Esterase (Negative) U Hyaline Cast (Auto) (0-2) /LPF Urine Microscopic RBC (0-5) /HPF Urine Microscopic WBC (0-5) /HPF Ur Epithelial Cells (None Seen) /HPF Urine Bacteria (None Seen) /HPF Urine Culture Reflexed (NO) Urine Opiates Level (NEGATIVE) Ur Methadone (NEGATIVE) Urine Barbiturates (NEGATIVE) Ur Phencyclidine (PCP) (NEGATIVE) Urine Amphetamine (NEGATIVE) U Benzodiazepine Level (NEGATIVE) Urine Cocaine (NEGATIVE) Urine Marijuana (THC) (NEGATIVE) 06/21/24 06/21/24 06/21/24 Range/Units 21:00 Unknown Unknown WBC (4.23-9.07) x10^3/uL RBC (4.63-6.08) x10^6/uL Hgb (13.7-17.5) g/dL Hct (40.1-51.0) % MCV (79.0-92.2) fL MCH (25.7-32.2) pg MCHC (32.3-36.5) g/dL RDW (11.6-14.4) % Plt Count (163-337) x10^3/uL MPV (9.4-12.4) fL Gran % (34.0-67.9) % Immature Gran % (Auto) (0.001-0.429) % Nucleat RBC Rel Count (0.00-0.2) % Eos # (Auto) (0.04-0.54) x10^3/uL Immature Gran # (Auto) (0.001-0.031) x10^3u/L Absolute Lymphs (auto) (1.32-3.57) x10^3/uL Absolute Monos (auto) (0.30-0.82) x10^3/uL Absolute Nucleated RBC (0.00-0.012) x10^3u/L Lymphocytes % (21.8-53.1) % Monocytes % (5.3-12.2) % Eosinophils % (0.8-7.0) % Basophils % (0.2-1.2) % Absolute Granulocytes (1.78-5.38) x10^3/uL Basophils # (0.01-0.08) x10^3/uL ESR (0-15) mm/hr PT 10.3 (9.4-12.5) SECONDS INR 0.94 (0.8-3.0) Sodium (135-145) mmol/L Potassium (3.5-5.1) mmol/L Chloride (98-107) mmol/L Carbon Dioxide (22-30) mmol/L Anion Gap (5-15) MEQ/L BUN (9-20) mg/dL Creatinine (0.66-1.25) mg/dL Estimated GFR ML/MIN Glucose (74-106) mg/dL POC Glucometer 54 L (74 to 106) mg/dL Hemoglobin A1c 6.28 H (4.5-6.0) % Lactic Acid (0.4-2.0) Calcium (8.4-10.2) mg/dL Magnesium (1.6-2.3) mg/dL Total Bilirubin (0.2-1.3) mg/dL AST (17-59) U/L ALT (0-50) U/L Alkaline Phosphatase (38-126) U/L Troponin I (0.000-0.033) ng/mL NT-Pro-B Natriuret Pep (<300) pg/mL Serum Total Protein (6.3-8.2) g/dL Albumin (3.5-5.0) g/dL TSH 3rd Generation (0.470-4.680) mIU/L Urine Color (Yellow) Urine Appearance (Clear) Urine pH (4.6-8.0) Ur Specific [place] (1.005-1.030) Urine Protein (Negative) Urine Glucose (UA) (Negative) mg/dL Urine Ketones (Negative) Urine Blood (Negative) Urine Nitrite (Negative) Urine Bilirubin (Negative) Urine Urobilinogen (0.2) mg/dL Ur Leukocyte Esterase (Negative) U Hyaline Cast (Auto) (0-2) /LPF Urine Microscopic RBC (0-5) /HPF Urine Microscopic WBC (0-5) /HPF Ur Epithelial Cells (None Seen) /HPF Urine Bacteria (None Seen) /HPF Urine Culture Reflexed (NO) Urine Opiates Level (NEGATIVE) Ur Methadone (NEGATIVE) Urine Barbiturates (NEGATIVE) Ur Phencyclidine (PCP) (NEGATIVE) Urine Amphetamine (NEGATIVE) U Benzodiazepine Level (NEGATIVE) Urine Cocaine (NEGATIVE) Urine Marijuana (THC) (NEGATIVE) 06/21/24 06/22/24 Range/Units Unknown 04:33 WBC 9.7 H (4.23-9.07) x10^3/uL RBC 5.40 (4.63-6.08) x10^6/uL Hgb 15.8 (13.7-17.5) g/dL Hct 46.0 (40.1-51.0) % MCV 85.2 (79.0-92.2) fL MCH 29.3 (25.7-32.2) pg MCHC 34.3 (32.3-36.5) g/dL RDW 13.3 (11.6-14.4) % Plt Count 250 (163-337) x10^3/uL MPV 9.1 L (9.4-12.4) fL Gran % (34.0-67.9) % Immature Gran % (Auto) (0.001-0.429) % Nucleat RBC Rel Count (0.00-0.2) % Eos # (Auto) (0.04-0.54) x10^3/uL Immature Gran # (Auto) (0.001-0.031) x10^3u/L Absolute Lymphs (auto) (1.32-3.57) x10^3/uL Absolute Monos (auto) (0.30-0.82) x10^3/uL Absolute Nucleated RBC (0.00-0.012) x10^3u/L Lymphocytes % (21.8-53.1) % Monocytes % (5.3-12.2) % Eosinophils % (0.8-7.0) % Basophils % (0.2-1.2) % Absolute Granulocytes (1.78-5.38) x10^3/uL Basophils # (0.01-0.08) x10^3/uL ESR (0-15) mm/hr PT (9.4-12.5) SECONDS INR (0.8-3.0) Sodium (135-145) mmol/L Potassium (3.5-5.1) mmol/L Chloride (98-107) mmol/L Carbon Dioxide (22-30) mmol/L Anion Gap (5-15) MEQ/L BUN (9-20) mg/dL Creatinine (0.66-1.25) mg/dL Estimated GFR ML/MIN Glucose (74-106) mg/dL POC Glucometer (74 to 106) mg/dL Hemoglobin A1c (4.5-6.0) % Lactic Acid (0.4-2.0) Calcium (8.4-10.2) mg/dL Magnesium (1.6-2.3) mg/dL Total Bilirubin (0.2-1.3) mg/dL AST (17-59) U/L ALT (0-50) U/L Alkaline Phosphatase (38-126) U/L Troponin I (0.000-0.033) ng/mL NT-Pro-B Natriuret Pep (<300) pg/mL Serum Total Protein (6.3-8.2) g/dL Albumin (3.5-5.0) g/dL TSH 3rd Generation (0.470-4.680) mIU/L Urine Color (Yellow) Urine Appearance (Clear) Urine pH (4.6-8.0) Ur Specific [place] (1.005-1.030) Urine Protein (Negative) Urine Glucose (UA) (Negative) mg/dL Urine Ketones (Negative) Urine Blood (Negative) Urine Nitrite (Negative) Urine Bilirubin (Negative) Urine Urobilinogen (0.2) mg/dL Ur Leukocyte Esterase (Negative) U Hyaline Cast (Auto) (0-2) /LPF Urine Microscopic RBC (0-5) /HPF Urine Microscopic WBC (0-5) /HPF Ur Epithelial Cells (None Seen) /HPF Urine Bacteria (None Seen) /HPF Urine Culture Reflexed (NO) Urine Opiates Level NEGATIVE (NEGATIVE) Ur Methadone NEGATIVE (NEGATIVE) Urine Barbiturates NEGATIVE (NEGATIVE) Ur Phencyclidine (PCP) NEGATIVE (NEGATIVE) Urine Amphetamine NEGATIVE (NEGATIVE) U Benzodiazepine Level NEGATIVE (NEGATIVE) Urine Cocaine NEGATIVE (NEGATIVE) Urine Marijuana (THC) NEGATIVE (NEGATIVE) Radiology Exams: Radiology Procedures Category Date Time Status CHEST 2 VIEWS (PA AND LAT) Routine Exams 06/21/24 14:[address] ANGIOGRAPHY NECK [CT] Stat Exams 08/18/24 09:58 Completed CTA HEAD W AND/OR WO CONTRAST [CT] Stat Exams 06/21/24 09:58 Completed ECHO W/2D AND DOPPLER [US] Routine Exams 06/22/24 08:00 Ordered HEAD WITHOUT CONTRAST [CT] Stat Exams 06/21/24 07:57 Completed MRI BRAIN WITH CONTRAST [MRI] Routine Exams 06/22/24 08:00 Ordered Assessment/Plan (1) Acute left-sided weakness Current Visit: Yes Status: Acute Assessment & Plan: - resolved since admission -CTH: no acute intracranial process. left occipital and left BG hypodensity favored to be remote infarct -Normal CT angiography of the head. No evidence of significant vascular abnormalities, acute infarct, or hemorrhage.Mild atherosclerotic changes seen in the visualized arteries -CT angiography neck shows right vertebral artery occlusion - no txt needed per neurology. -Neurology consulted - agree with recommendations as follows: - MRI Brain and echo pending - Frequent neuro-checks (q4h) - Permissive HTN for 24h:systolic BP goal up to 220, diastolic up to 110 mmHg for 24h - Baseline EKG and CXR -ordered and pending - Intravenous hydration with normal saline at 75cc per hour - NPO until after END LATHE OPERATOR eval -Optimize electrolytes K >4.0, Mg > 2.0. - Head of bed > 30 degrees for aspiration prevention and aspiration precautions -Continuous cardiac telemetry to monitor for arrhythmia -Aspirin 325mg daily -rosuvastatin 40 mg daily (long-term goal LDL < 70) -Tight glucose control (long-term goal HgbA1c < 7%) -current A1c 6.28 -Stroke education and counseling -Physical therapy, occupational therapy, speech therapy consults Code(s): R53.1 - WEAKNESS (2) Vertebral artery occlusion Current Visit: Yes Status: Acute Assessment & Plan: - CT angiography 06/21 IMPRESSION: Right vertebral artery occlusion. Otherwise, Normal CT angiography of the neck. - Per neurology f/u with MRI tomorrow and OP f/u- no need to transfer - Code(s): I65.09 - OCCLUSION AND STENOSIS OF UNSPECIFIED VERTEBRAL ARTERY (3) HTN (hypertension) Current Visit: Yes Status: Acute Assessment & Plan: - Permissive HTN for 24h:systolic BP goal up to 220, diastolic up to 110 mmHg for 24h - Hold BP meds for now (5) Hyponatremia - mild- 131- trend - NS @ 75 ml/hr per neurology recs Code(s): I10 - ESSENTIAL (PRIMARY) HYPERTENSION (4) Hyperlipidemia Current Visit: Yes Status: Acute Assessment & Plan: - Zocor 40 daily - He does take Crestor OP this is not formulary here - See neuro consult- we do not carry medication recommended. Code(s): E78.5 - HYPERLIPIDEMIA, UNSPECIFIED (5) Hyponatremia Current Visit: Yes Status: Acute Assessment & Plan: -mild corrected sodium for hyperglycemia on admission 133 Code(s): E87.1 - HYPO-OSMOLALITY AND HYPONATREMIA (6) Type II diabetes mellitus Current Visit: Yes Status: Chronic Assessment & Plan: - A1C 6.28 -ADA diet - hold metformin - accuchecks ac/hs, humalog mod dose s/s VTE: Heparin D/C plan: 1-2 days
[2024-06-22 05:18] LABS: ALBUMIN 3.9 g/dL (3.5-5.0); BILIRUBIN,TOTAL 0.8 mg/dL (0.2-1.3); Calcium 9.3 mg/dL (8.4-10.2); Creatinine 1 0.61 mg/dL (0.66-1.25); Potassium 4.3 mmol/L (3.5-5.1); Total Protein 6.2 g/dL (6.3-8.2)
[2024-06-22] MEDS ORDERED: TYLENOL 325 MG ONE (06:49)
[2024-06-22] MEDS: TYLENOL 325 MG PO PRN (06:51)
[2024-06-22 08:39] VITALS: TEMP 97.9
[2024-06-22] MEDS ORDERED: NON-FORMULARY ITEM (Dapagliflozin Propanediol [Farxiga] 10 MG Tablet) PO SCH (10:00)
[2024-06-22] MEDS: Ecotrin 325 MG PO SCH (10:27)
[2024-06-22] MEDS: PATIENT OWN MEDICATION PO SCH (10:46)
[2024-06-22 12:13] VITALS: BP 122/70; PULSE 62; RESP 20; O2SAT 95
--- NOTE | 2024-06-22 13:44 | PCM.DS ---
Discharge Summary Date of Admission: 06/21/24 10:54 Date of Discharge: 06/22/24 Admitting Physician: YOKO PARKER MD Consults: Consults on Case 06/21/24 07:54 Tele-Health Consult ROUTINE 06/21/24 12:08 Consult Neurology ROUTINE Primary Care Provider: JOSE NEGRON Allergies Allergies No Known Drug Allergies Allergy (Verified 06/21/24 07:24) Hospital Summary - Hospital Course Hospital Course: is a 59 year old male with PMHX of CAD, hyperlipidemia, TIA, HTN, prior stents for CAD, and Type II DM ( oral controlled) admitted 06/21/24 with left- sided weakness/numbness and tingling. CT head with no acute intracranial process. left occipital and left BG hypodensity favored to be remote infarct. Normal CT angiography of the head. No evidence of significant vascular abnormalities, acute infarct, or hemorrhage.Mild atherosclerotic changes seen in the visualized arteries.Neurology consulted in ED with recommendations for admit with MRI/ECHO. MRI with no acute findings -chronic findings including atrophy, degenerative micro-ischemia, small remote infarct left occipital lobe, and remote lacunar infarct left basal ganglia. Patient is already on 81mg ASA daily, atorvastatin increased from 10mg to 40mg daily. 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 Symptoms have resolved. Advised neurology follow up - appt made. Discharge Note New Diagnosis: Left-sided weakness New Medications: ASA/Atorvastatin increased to 40mg/Plavix Follow Up: Neurology/PCP Results pending: Outpatient testing to order: Latest Assessment & Plan (1) Vertebral artery occlusion - CT angiography 06/21 IMPRESSION: Right vertebral artery occlusion. Otherwise, Normal CT angiography of the neck. - Per neurology f/u with MRI tomorrow - no need to transfer per neurology (2) Acute left-sided weakness - resolved since admission -CTH: no acute intracranial process. left occipital and left BG hypodensity favored to be remote infarct -Normal CT angiography of the head. No evidence of significant vascular abnormalities, acute infarct, or hemorrhage.Mild atherosclerotic changes seen in the visualized arteries -CT angiography neck shows right vertebral artery occlusion - no txt needed per neurology. -Neurology consulted - agree with recommendations as follows: - MRI Brain and echo pending - Frequent neuro-checks (q4h) - Permissive HTN for 24h:systolic BP goal up to 220, diastolic up to 110 mmHg for 24h - Baseline EKG and CXR -ordered and pending - Intravenous hydration with normal saline at 75cc per hour - NPO until after [employer] eval -Optimize electrolytes K >4.0, Mg > 2.0. - Head of bed > 30 degrees for aspiration prevention and aspiration precautions -Continuous cardiac telemetry to monitor for arrhythmia -Aspirin 325mg daily -rosuvastatin 40 mg daily (long-term goal LDL < 70) -Tight glucose control (long-term goal HgbA1c < 7%) -current A1c 6.28 -Stroke education and counseling -Physical therapy, occupational therapy, speech therapy consults (3) Type II diabetes mellitus - A1C 6.28 -ADA diet - hold metformin - accuchecks ac/hs, humalog mod dose s/s (4) HTN (hypertension) (6) Hyperlipidemia - Zocor 40 daily - He does take Crestor OP this is not formulary here - See neuro consult- we do not carry medication recommended. I spent 35 minutes [id number] with the patient on the day of discharge performing discharge exam, discussing hospital stay and discharge instructions with patient and caregivers, preparation of discharge records, prescriptions & referral forms and addressing any questions/concerns the patient had as documented above. - Vitals & Intake/Output Vital Signs: Vital Signs Temperature 97.9 F 06/22/24 12:00 Pulse Rate 62 06/22/24 12:00 Respiratory Rate 20 06/22/24 12:00 Blood Pressure 122/70 06/22/24 12:00 O2 Sat by Pulse Oximetry 95 06/22/24 12:00 Intake & Output: Intake & Output 06/20/24 06/21/24 06/22/24 06/23/24 11:59 11:59 11:59 11:59 Intake Total 2605 120 Output Total 125 Balance 2480 120 Weight 85.8 kg - Lab Result Diagrams: 06/22/24 04:33 06/22/24 04:33 Lab Results-Last 24 Hrs: Lab Results-Last 24 Hours 06/21/24 06/21/24 06/21/24 Range/Units 16:02 16:22 21:00 WBC (4.23-9.07) x10^3/uL RBC (4.63-6.08) x10^6/uL Hgb (13.7-17.5) g/dL Hct (40.1-51.0) % MCV (79.0-92.2) fL MCH (25.7-32.2) pg MCHC (32.3-36.5) g/dL RDW (11.6-14.4) % Plt Count (163-337) x10^3/uL MPV (9.4-12.4) fL Sodium (135-145) mmol/L Potassium (3.5-5.1) mmol/L Chloride (98-107) mmol/L Carbon Dioxide (22-30) mmol/L Anion Gap (5-15) MEQ/L BUN (9-20) mg/dL Creatinine (0.66-1.25) mg/dL Estimated GFR ML/MIN Glucose (74-106) mg/dL POC Glucometer 157 H 54 L (74 to 106) mg/dL Calcium (8.4-10.2) mg/dL Total Bilirubin (0.2-1.3) mg/dL AST (17-59) U/L ALT (0-50) U/L Alkaline Phosphatase (38-126) U/L Troponin I < 0.012 (0.000-0.033) ng/mL Serum Total Protein (6.3-8.2) g/dL Albumin (3.5-5.0) g/dL Triglycerides (30-150) mg/dL Cholesterol (50-200) mg/dL LDL Cholesterol (30-100) mg/dL HDL Cholesterol (40-60) mg/dL Heart Disease Risk Ratio Urine Opiates Level (NEGATIVE) Ur Methadone (NEGATIVE) Urine Barbiturates (NEGATIVE) Ur Phencyclidine (PCP) (NEGATIVE) Urine Amphetamine (NEGATIVE) U Benzodiazepine Level (NEGATIVE) Urine Cocaine (NEGATIVE) Urine Marijuana (THC) (NEGATIVE) 06/21/24 06/22/24 06/22/24 Range/Units Unknown 04:33 04:33 WBC 9.7 H (4.23-9.07) x10^3/uL RBC 5.40 (4.63-6.08) x10^6/uL Hgb 15.8 (13.7-17.5) g/dL Hct 46.0 (40.1-51.0) % MCV 85.2 (79.0-92.2) fL MCH 29.3 (25.7-32.2) pg MCHC 34.3 (32.3-36.5) g/dL RDW 13.3 (11.6-14.4) % Plt Count 250 (163-337) x10^3/uL MPV 9.1 L (9.4-12.4) fL Sodium (135-145) mmol/L Potassium (3.5-5.1) mmol/L Chloride (98-107) mmol/L Carbon Dioxide (22-30) mmol/L Anion Gap (5-15) MEQ/L BUN (9-20) mg/dL Creatinine (0.66-1.25) mg/dL Estimated GFR ML/MIN Glucose (74-106) mg/dL POC Glucometer (74 to 106) mg/dL Calcium (8.4-10.2) mg/dL Total Bilirubin (0.2-1.3) mg/dL AST (17-59) U/L ALT (0-50) U/L Alkaline Phosphatase (38-126) U/L Troponin I (0.000-0.033) ng/mL Serum Total Protein (6.3-8.2) g/dL Albumin (3.5-5.0) g/dL Triglycerides 101 (30-150) mg/dL Cholesterol 112 (50-200) mg/dL LDL Cholesterol 66 (30-100) mg/dL HDL Cholesterol 32 L (40-60) mg/dL Heart Disease Risk Ratio 3.0 Urine Opiates Level NEGATIVE (NEGATIVE) Ur Methadone NEGATIVE (NEGATIVE) Urine Barbiturates NEGATIVE (NEGATIVE) Ur Phencyclidine (PCP) NEGATIVE (NEGATIVE) Urine Amphetamine NEGATIVE (NEGATIVE) U Benzodiazepine Level NEGATIVE (NEGATIVE) Urine Cocaine NEGATIVE (NEGATIVE) Urine Marijuana (THC) NEGATIVE (NEGATIVE) 06/22/24 06/22/24 06/22/24 Range/Units 04:33 06:47 11:44 WBC (4.23-9.07) x10^3/uL RBC (4.63-6.08) x10^6/uL Hgb (13.7-17.5) g/dL Hct (40.1-51.0) % MCV (79.0-92.2) fL MCH (25.7-32.2) pg MCHC (32.3-36.5) g/dL RDW (11.6-14.4) % Plt Count (163-337) x10^3/uL MPV (9.4-12.4) fL Sodium 133 L (135-145) mmol/L Potassium 4.3 (3.5-5.1) mmol/L Chloride 103 (98-107) mmol/L Carbon Dioxide 22 (22-30) mmol/L Anion Gap 12.0 (5-15) MEQ/L BUN 9 (9-20) mg/dL Creatinine 0.61 L (0.66-1.25) mg/dL Estimated GFR 110.0 ML/MIN Glucose 118 H (74-106) mg/dL POC Glucometer 133 H 107 H (74 to 106) mg/dL Calcium 9.3 (8.4-10.2) mg/dL Total Bilirubin 0.80 (0.2-1.3) mg/dL AST 22 (17-59) U/L ALT 24 (0-50) U/L Alkaline Phosphatase 56 (38-126) U/L Troponin I (0.000-0.033) ng/mL Serum Total Protein 6.2 L (6.3-8.2) g/dL Albumin 3.9 (3.5-5.0) g/dL Triglycerides (30-150) mg/dL Cholesterol (50-200) mg/dL LDL Cholesterol (30-100) mg/dL HDL Cholesterol (40-60) mg/dL Heart Disease Risk Ratio Urine Opiates Level (NEGATIVE) Ur Methadone (NEGATIVE) Urine Barbiturates (NEGATIVE) Ur Phencyclidine (PCP) (NEGATIVE) Urine Amphetamine (NEGATIVE) U Benzodiazepine Level (NEGATIVE) Urine Cocaine (NEGATIVE) Urine Marijuana (THC) (NEGATIVE) Micro Results-Entire Visit: Accuchecks Date 06/22/24 Date 06/22/24 Date 06/21/24 Date 06/21/24 Time 21:00 Time 16:36 - Radiology Exams Ordered Rad Exams-Entire Visit: Radiology Procedures Category Date Time Status CHEST 2 VIEWS (PA AND LAT) Routine Exams 06/21/24 14:[address] ANGIOGRAPHY NECK [CT] Stat Exams 06/21/24 09:58 Completed CTA HEAD W AND/OR WO CONTRAST [CT] Stat Exams 06/21/24 09:58 Completed ECHO W/2D AND DOPPLER [US] Routine Exams 06/22/24 08:00 Taken HEAD WITHOUT CONTRAST [CT] Stat Exams 06/21/24 07:57 Completed MRI BRAIN WITH CONTRAST [MRI] Routine Exams 06/22/24 08:00 Taken - Procedures and Test Procedures and Tests throughout Hospitalization: Therapy Orders & Screens 06/21/24 11:00 Respiratory Therapy Consult ONCE Comment: Reason For Exam: 06/21/24 12:15 PT Eval & Treat (MD Order) ONCE Reason for Eval:: stroke like sxs Diagnosis: left sided weakness ST Eval & Treat (MD Order) .as ordered Comment: Physician Instructions: Reason For Exam: Evaluate: Yes: stroke like sxs Treat: Yes Reason for Eval: stroke like sxs Diagnosis: left sided weakness OT Eval and Treat (MD Order) ONCE Comment: Physician Instructions: Reason For Exam: Diagnosis: left sided weakness Discharge Exam General Appearance: no apparent distress Neurologic Exam: alert, oriented x 3, cooperative Eye Exam: PERRL Ears, Nose, Throat Exam: normal ENT inspection Neck Exam: normal inspection Respiratory Exam: normal breath sounds, lungs clear Cardiovascular Exam: regular rate/rhythm, normal heart sounds Gastrointestinal/Abdomen Exam: soft, normal bowel sounds Male Genitalia Exam: deferred Rectal Exam: deferred Back Exam: normal inspection Extremity Exam: normal inspection Skin Exam: normal color Final Diagnosis/Problem List - Final Discharge Diagnosis/Problem (1) Acute left-sided weakness Current Visit: Yes Status: Resolved Code(s): R53.1 - WEAKNESS (2) Vertebral artery occlusion Current Visit: Yes Status: Chronic Code(s): I65.09 - OCCLUSION AND STENOSIS OF UNSPECIFIED VERTEBRAL ARTERY (3) HTN (hypertension) Current Visit: Yes Status: Chronic Code(s): I10 - ESSENTIAL (PRIMARY) HYPERTENSION (4) Hyperlipidemia Current Visit: Yes Status: Chronic Code(s): E78.5 - HYPERLIPIDEMIA, UNSPECIFIED (5) Hyponatremia Current Visit: Yes Status: Resolved Code(s): E87.1 - HYPO-OSMOLALITY AND HYPONATREMIA (6) Type II diabetes mellitus Current Visit: Yes Status: Chronic - Discharge Disposition: Home, Self-Care Condition: Good Prescriptions: New Aspirin EC 325 mg [Ecotrin 325 MG] 325 mg PO QAM 30 Days #30 tablet Clopidogrel Bisulfate [PLAVIX Tablet] 75 mg PO DAILY 21 Days #21 tablet Rosuvastatin Calcium 40 mg PO DAILY 30 Days #30 tablet Continue lisinopriL [Zestril] 2.5 mg PO DAILY Amlodipine Besylate 5 mg [Norvasc 5 mg] 10 mg PO DAILY Hydrochlorothiazide 25 mg [hydroDIURIL 25 MG] 25 mg PO DAILY Glipizide 5 mg [Glucotrol 5 MG] 10 mg PO BID Nebivolol HCl [Bystolic] 20 mg PO DAILY Latanoprost/Pf [Latanoprost 0.005% Eye Drop] 1 drop OP QHS Dulaglutide [Trulicity] 0.75 mg SQ WEEKLY cycloSPORINE [Cyclosporine] 1 drop OP BID Metformin HCl 500 mg [Glucophage 500 MG] 1,000 mg PO QAM Metformin HCl 500 mg [Glucophage 500 MG] 1,500 mg PO EVENING MEAL Dapagliflozin Propanediol [Farxiga] 10 mg PO DAILY Discontinued Rosuvastatin Calcium [Crestor] 10 mg PO QHS Aspirin 81 gm Chew [Baby Aspirin 81 mg Chew] 81 mg PO DAILY #0 Follow up with: FLORY NEGRON DO [NON-STAFF PHY W/O PRIVILEGES] - JOSE NEGRON [Primary Care Provider] -
--- NOTE | 2024-06-22 13:51 | XRAY ---
Indication: Left-sided weakness. History TIA. Sagittal, coronal, and axial MRI brain performed using pre-and post T1, T2, FLAIR, diffusion, and ADC sequences as ordered. 15 cc Dotarem contrast used. Comparison: May 28, 2023 Again age-appropriate global atrophy, minimal periventricular degenerative micro-ischemia signal bilaterally, small focus remote infarct left occipital lobe, and remote lacunar infarct left basal ganglia. No acute intracranial hemorrhage, abnormal extra-axial fluid collection, or mass effect. Diffusion images negative for restricted signal. Following gadolinium, there is no abnormal enhancing intra or extra-axial mass. Fourth ventricle is midline without hydrocephalus. 7/8 cranial nerve complex bilaterally symmetric. Normal flow void signal within the major intracerebral circulation. Normal appearing craniocervical junction and sella turcica. Paranasal sinuses are clear. Impression: 1. Again chronic findings including atrophy, degenerative micro-ischemia, small remote infarct left occipital lobe, and remote lacunar infarct left basal ganglia. 2. Remaining MRI brain with contrast exam continues to be negative.
== END 2024-06-22 15:15 | disposition home or self-care (01) ==
LOC: ED 07:19 → MED SURG 10:54
PROVIDERS: ADMIT Internal Medicine; ATTEND Internal Medicine
DX: I65.09 Occlusion and stenosis of unspecified vertebral artery (principal); R53.1 Weakness; E78.5 Hyperlipidemia, unspecified; E87.1 Hypo-osmolality and hyponatremia; E11.9 Type 2 diabetes mellitus without complications; Z86.73 Personal history of transient ischemic attack (TIA), and cerebral infarction without residual deficits; I25.10 Atherosclerotic heart disease of native coronary artery without angina pectoris; I11.0 Hypertensive heart disease with heart failure; I50.9 Heart failure, unspecified; Z79.899 Other long term (current) drug therapy
CPT/HCPCS: 36000; 36415; 70450; 70496; 70498; 70552; 71046; 80053; 80061; 80307; 81001; 82947; 83036; 83605; 83721; 83735; 83880; 84443; 84484; 85025; 85027; 85610; 85652; 93005; 93041; 93306; 94760; 99285; Q3014; 93268; J1644; J1817; A9270-GY; G0378

== ENCOUNTER 2025-08-23 08:28 | Day surgery (SDC) | payer BC ==
--- NOTE | 2025-08-23 07:44 | HP ---
HISTORY OF PRESENT ILLNESS: A 60-year-old, no bloody stools, no change in bowel habits. Family history negative for colon cancer. Patient had polyps in the past and he needs a followup screening colonoscopy. PAST MEDICAL HISTORY: Hypertension, type 2 diabetes, hyperlipidemia, and coronary artery disease. PAST SURGICAL HISTORY: He had cardiac cath in the past. He had coronary stents x3 in the past. He had colonoscopy in the past. Tonsillectomy in the past. MEDICATIONS: Latanoprost eye drops for glaucoma, rosuvastatin for hyperlipidemia, lisinopril, glipizide, Farxiga, amlodipine, hydrochlorothiazide, clopidogrel, nebivolol, as well as metformin. ALLERGIES: No known drug allergies. FAMILY HISTORY: Heart disease. SOCIAL HISTORY: No smoking. Occasional alcohol use. REVIEW OF SYSTEMS: Twelve systems reviewed. Pertinent for all medical problems as noted above. No chest pain or palpitations. All other systems negative or noncontributory as noted above and per preadmission questionnaire. PHYSICAL EXAMINATION: GENERAL: No acute distress. VITAL SIGNS: Height 5 feet 9 inches, BMI 29.53. HEENT: Sclerae nonicteric. Extraocular movements intact. NECK: No JVD. CHEST: Equal excursion. Nonlabored breathing. CARDIOVASCULAR: Regular rate and rhythm. ABDOMEN: Soft. SKIN: Dry. EXTREMITIES: No cyanosis or edema. NEUROLOGIC: Alert and oriented. Moving all extremities symmetrically. PSYCHIATRIC: Appropriate mood and affect. RECTAL: Deferred until the time of endoscopy exam. IMPRESSION: Need for followup screening colonoscopy, prior history of polyps in the past. [place] patient is a candidate. He was shown the risk sheet. Explained the procedure in detail including, but not limited to, bleeding or infection; risk of bowel injury or perforation, possibly requiring need for other procedure; risk of incomplete exam, possibly requiring barium enema or swallow; risk of missed or non-diagnosis, possibly need for other procedure or referrals; risk of bowel prep, but not limited to. Otherwise, we will proceed with outpatient followup screening colonoscopy under MAC anesthesia. Otherwise, continue medications for hypertension, heart disease, hyperlipidemia, and diabetes.
[2025-08-23 09:08] VITALS: RESP 18
[2025-08-23 09:30] LABS: ISTAT BUN 11 mg/dL (8-26); ISTAT CL 98 mmol/L (98-109); ISTAT CO2 23 mmol/L (24-29); ISTAT CREA 0.9 mg/dL (0.6-1.3); ISTAT GLUC 110 mg/dL (70-105); ISTAT K 4.1 mmol/L (3.5-4.9); ISTAT NA 134 mmol/L (138-146); ISTAT iCA 1.17 mmol/L (1.12-1.32)
[2025-08-23] MEDS: Lactated Ringers 1,000 ML IV SCH (10:21)
[2025-08-23] MEDS ORDERED: propofoL IV ONE ×2 (10:27→10:41)
[2025-08-23] MEDS ORDERED: Xylocaine-Mpf 2% 5 Ml Vial ONE (10:41)
[2025-08-23 11:56] VITALS: BP 131/79; PULSE 63; TEMP 97.9; O2SAT 97
--- NOTE | 2025-08-24 11:00 | OP ---
SURGERY DATE/TIME: 08/23/2025 [id number] PREOPERATIVE DIAGNOSIS: Need for screening colonoscopy. POSTOPERATIVE DIAGNOSES: 1) Multiple colon polyps. 2) Diverticulosis. 3) Fair bowel prep. 4) ASA class 3. 5) Tortuous colon. PROCEDURES: 1) Colonoscopy to cecum. 2) Hot snare polypectomy of sigmoid colon polyps x2, approximately 5 to 7 mm in size. 3) Hot biopsy piecemeal polypectomy of another 7 mm polyp in the sigmoid colon. 4) Hot biopsy piecemeal polypectomy of transverse colon polyp and additional sigmoid colon polyp. 5) Hot biopsy polypectomy of ascending colon polyp as well as early polyp versus hyperplastic lesion in rectum. Other than the snared polyp, there was greater than 10 polyps at all the other locations. SURGEON: Jose Amaro MD ANESTHESIA: MAC. QUANTITATIVE BLOOD LOSS: Minimal. INDICATIONS: Consent was obtained. DESCRIPTION OF PROCEDURE AND FINDINGS: The patient was taken to the endoscopy room. MAC anesthesia induced. After official time-out and no disagreement with planned procedure, videocolonoscope was inserted and passed up through the tortuous sigmoid, descending, transverse, and ascending colon. After positioning the patient on his back and 2 different staff members putting pressure, scope was finally able to reach the cecum. Appendiceal orifice and valve were well visualized, photo documented. Prep overall was fair, with little liquidy, semisolid stool, slightly limiting exam for small lesions. This was suction irrigated as clear as possible. Scope was carefully withdrawn over the next 15 to 20 minutes, stopping to remove small polyp in the ascending colon with hot biopsy polypectomy. Transverse colon polyps removed with hot biopsy polypectomy. Additional polyps in the sigmoid colon were removed with hot biopsy piecemeal polypectomy. There was 1 polyp in the sigmoid colon that was removed that was about 7 mm in size, removed with hot biopsy piecemeal polypectomy. Appeared hyperplastic in nature. Two polyps that were about 5 to 7 mm in size removed with hot snare polypectomy in the sigmoid colon. There was another 3 or 4 polyps in the rectum removed with hot biopsy forceps. Good hemostasis was noted. Other than the 2 snared polyps, the other polyps totaled more than 10 throughout the colon. He had mild to moderate diverticulosis with some small medium to large diverticula in the left colon. Scope was withdrawn. Patient tolerated procedure well. There were no immediate complications. There was no family to discuss the findings at the moment. I will see him back in the office in a week or two to go over the results.
== END 2025-08-23 12:05 | disposition home or self-care (01) ==
LOC: SDC 08:28
PROVIDERS: ATTEND Surgery
DX: Z12.11 Encounter for screening for malignant neoplasm of colon (principal); Z09 Encounter for follow-up examination after completed treatment for conditions other than malignant neoplasm; Z86.0100 Personal history of colon polyps, unspecified; I10 Essential (primary) hypertension; K57.30 Diverticulosis of large intestine without perforation or abscess without bleeding; D12.7 Benign neoplasm of rectosigmoid junction; D12.5 Benign neoplasm of sigmoid colon; D12.3 Benign neoplasm of transverse colon